=== PATIENT | male | born 1995 | race Asian ===

== ENCOUNTER 2018-01-29 12:20 | Inpatient (IN) | payer OTHER ==
[2018-01-29] MEDS ORDERED: Sodium Chloride 0.9% 10 ML Syringe FLUSH PRN (13:56)
[2018-01-29] MEDS ORDERED: Sodium Chloride 0.9% 1,000 ML IV ONE (13:56)
--- NOTE | 2018-01-29 14:33 | EDM.PDOC ---
<Alysia Murphy - Last Filed: 01/29/18 18:44> ED HPI GENERAL MEDICAL PROBLEM - General Chief Complaint: Behavioral/Psych Stated Complaint: HEART PALPITATIONS Time Seen by Provider: 01/29/18 13:33 - History of Present Illness INITIAL COMMENTS - FREE TEXT/NARRATIVE: Patient comes in today with complaint of anxiety. Patient states that he experiences heart palpitations when he feels anxious. He has had these symptoms intermittently for five years. He went to the doctor five years ago with this complaint, he had an EKG which was normal, he was told that his symptoms were due to anxiety. The patient is from [facility], he is living in [place] while working and will be returning to [facility] in April. His palpitations have been occurring more frequently over the past two weeks, especially the past two to three days. Patient denies illicit drug use, SOB, chest pain, dizziness, syncope, weakness, family history of heart disease or sudden cardiac . Patient does not take any medication prescription or OTC. Duration: Getting Worse, Intermittent Location: Reports: Chest Worsens with: Reports: Other Associated Symptoms: Denies: Confusion, Chest Pain, Diaphoresis, Nausea/Vomiting , Shortness of Breath, Syncope, Weakness - Related Data Allergies Allergy/AdvReac Type Severity Reaction Status Date / Time No Known Allergies Allergy Verified 01/29/18 12:33 Home Meds: Home Meds . [No Known Home Meds] 01/29/18 [History] ED ROS GENERAL - Review of Systems Constitutional: Denies: Fever, Chills, Weakness, Fatigue, Diaphoresis Respiratory: Denies: Shortness of Breath Cardiovascular: Reports: Palpitations. Denies: Chest Pain, Blood Pressure Problem, Dyspnea on Exertion, Edema, Lightheadedness, Syncope Endocrine: Denies: Fatigue GI/Abdominal: Denies: Abdominal Pain, Diarrhea, Nausea, Vomiting Skin: Denies: Cyanosis, Pallor, Diaphoresis Neurological: Denies: Confusion, Dizziness, Headache, Numbness, Syncope, Tingling, Weakness Psychiatric: Reports: Anxiety ED EXAM, GENERAL - Physical Exam Exam Limited By: No Limitations General Appearance: Alert, WD/WN, No Apparent Distress Eye Exam: Bilateral Eye: EOMI, PERRL Head: Atraumatic, Normocephalic Respiratory/Chest: No Respiratory Distress, Lungs Clear, Normal Breath Sounds, No Accessory Muscle Use, Chest Non-Tender. No: Crackles, Rhonchi, Wheezing, Retractions Cardiovascular: Normal Peripheral Pulses, Regular Rate, Rhythm, No Edema, No Murmur GI/Abdominal: Normal Bowel Sounds, Soft, Non-Tender, No Distention Neurological: Alert, Oriented, Normal Cognition Psychiatric: Normal Affect, Normal Mood. No: Anxious Course - Vital Signs Last Recorded V/S: Last Vital Signs Temp 98.1 F 01/29/18 18:00 Pulse 68 01/29/18 18:00 Resp 18 01/29/18 18:00 BP 137/95 H 01/29/18 18:00 Pulse Ox 98 01/29/18 19:05 - Orders/Labs/Meds Orders: Active Orders 24 hr Category Date Time Status Cardiac Monitoring [RC] . DIRECTED Care 01/29/18 13:55 Active EKG Documentation Completion [RC] ASDIRECTED Care 01/29/18 13:56 Active Peripheral IV Care [RC] Q2HR Care 01/29/18 13:56 Active DRUG SCREEN, URINE [URCHEM] Stat Lab 01/29/18 18:00 Ordered Sodium Chloride 0.9% [Saline Flush] Med 01/29/18 13:56 Active 10 ml FLUSH ASDIRECTED PRN Peripheral IV Insertion Adult [OM.PC] Routine Oth 01/29/18 13:56 Ordered EKG 12 Lead [EK] Stat Ther 01/29/18 13:55 Ordered Medication Orders Acetaminophen (Tylenol) 650 mg PO Q4H PRN PRN Reason: Pain (Mild 1-3)/fever Hydrocodone Bitart/Acetaminophen ([place] 325-5 Mg) 1 tab PO Q4H PRN PRN Reason: Pain (moderate 4-6) Bisacodyl (Dulcolax) 5 mg PO DAILY PRN PRN Reason: Constipation Docusate Sodium (Colace) 100 mg PO BID PRN PRN Reason: Constipation Enoxaparin Sodium (Lovenox) 40 mg SUBCUT DAILY DIDI Famotidine (Pepcid) 20 mg PO BID DIDI Hydralazine HCl (Apresoline) 20 mg IVPUSH Q4H PRN PRN Reason: Hypertension Amiodarone HCl/Dextrose 150 mg (/ Premix) 100 mls @ 600 mls/hr IV ONETIME PRN; Protocol PRN Reason: V-TACH Last Admin: 01/29/18 20:15 Dose: 600 mls/hr Amiodarone HCl/Dextrose (Nexterone In Dextrose 360 Mg/200 Ml) 360 mg in 200 mls @ 33.333 mls/hr IV ASDIRECTED [facility]; Protocol Last Admin: 01/29/18 20:39 Dose: 33.333 mls/hr Lorazepam (Ativan) 2 mg IVPUSH Q4H PRN PRN Reason: Seizures Magnesium Hydroxide (Milk Of Magnesia) 30 ml PO Q12H PRN PRN Reason: Constipation Magnesium Sulfate (Pharmacy To Dose - Magnesium Replacement) 1 dose .XX ASDIRECTED [facility] Metoprolol Tartrate (Lopressor) 5 mg IVPUSH Q4H PRN PRN Reason: Tachycardia Morphine Sulfate (Morphine) 2 mg IVPUSH Q2H PRN PRN Reason: Pain (severe 7-10) Stop: 01/30/18 19:06 Ondansetron HCl (Zofran Odt) 4 mg PO Q4H PRN PRN Reason: nausea, able to take PO Ondansetron HCl (Zofran) 4 mg IV Q4H PRN PRN Reason: Nausea/Vomiting Polyethylene Glycol (Miralax) 17 gm PO DAILY PRN PRN Reason: Constipation Potassium Chloride (Pharmacy To Dose - Potassium Replacement) 1 dose .XX ASDIRECTED [facility] Senna/Docusate Sodium (Senna Plus) 1 tab PO BID PRN PRN Reason: Constipation Sodium Chloride (Saline Flush) 10 ml FLUSH ASDIRECTED PRN PRN Reason: Keep Vein Open Last Admin: 01/29/18 14:38 Dose: 10 ml Labs: Laboratory Tests 01/29/18 01/29/18 01/29/18 Range/Units 14:30 14:30 14:30 WBC 7.31 (4.23-9.07) K/mm3 RBC 6.85 H (4.63-6.08) M/mm3 Hgb 14.2 (13.7-17.5) gm/L Hct 44.0 (40.1-51.0) % MCV 64.2 L (79.0-92.2) fl MCH 20.7 L (25.7-32.2) pg MCHC 32.3 (32.2-35.5) g/dl RDW Std Deviation 41.9 (35.1-43.9) fL Plt Count 279 (163-337) K/mm3 MPV 10.9 (9.4-12.3) fl Neut % (Auto) 63.7 (34.0-67.9) % Lymph % (Auto) 16.3 L (21.8-53.1) % Garrard % (Auto) 17.6 H (5.3-12.2) % Eos % (Auto) 1.6 (0.8-7.0) Baso % (Auto) 0.7 (0.1-1.2) % Neut # (Auto) 4.65 (1.78-5.38) K/mm3 Lymph # (Auto) 1.19 L (1.32-3.57) K/mm3 Garrard # (Auto) 1.29 H (0.30-0.82) K/mm3 Eos # (Auto) 0.12 (0.04-0.54) K/mm3 Baso # (Auto) 0.05 (0.01-0.08) K/mm3 Manual Slide Review Abnormal smear D-Dimer, Quantitative 0.20 (0.19-0.50) mg/L Sodium 141 (136-145) mEq/L Potassium 4.0 (3.5-5.1) mEq/L Chloride 104 (98-107) mEq/L Carbon Dioxide 28 (21-32) mEq/L Anion Gap 13.0 (5-15) BUN 14 (7-18) mg/dL Creatinine 1.0 (0.7-1.3) mg/dL Est Cr Clr Drug Dosing 98.33 mL/min Estimated GFR (MDRD) > 60 (>60) mL/min BUN/Creatinine Ratio 14.0 (14-18) Glucose 91 (74-106) mg/dL Calcium 9.2 (8.5-10.1) mg/dL Magnesium 2.1 (1.8-2.4) mg/dl Total Bilirubin 1.0 (0.2-1.0) mg/dL AST 22 (15-37) U/L ALT 20 (16-63) U/L Alkaline Phosphatase 70 (46-116) U/L Troponin I < 0.017 (0.00-0.056) ng/mL Total Protein 7.7 (6.4-8.2) g/dl Albumin 4.2 (3.4-5.0) g/dl Globulin 3.5 gm/dL Albumin/Globulin Ratio 1.2 (1-2) TSH 3rd Generation 0.798 (0.358-3.74) uIU/mL Urine Color Urine Appearance Urine pH Ur Specific Fowler Urine Protein Urine Glucose (UA) Urine Ketones Urine Occult Blood Urine Nitrite Urine Bilirubin Urine Urobilinogen Ur Leukocyte Esterase Urine RBC Urine WBC Urine WBC Clumps Ur Epithelial Cells Ur Squamous Epith Cells Ur Transition Epith Cell Ur Renal Epithelial Cell Schaller Biurate Crystals Calcium Carbonate Cryst Calcium Phosphate Cryst Calcium Oxalate Crystal Leucine Crystals Cystine Crystals Uric Acid Crystals Triple Phos Crystals Sodium Urate Crystals Tyrosine Crystals Other Crystals Amorphous Sediment Urine Bacteria Epithelial Casts Fatty Casts Hyaline Casts Fine Granular Casts Coarse Granular Casts Waxy Casts Broad Casts RBC Casts WBC Casts Urine Mucus Urine Other Urine Trichomonas Urine Yeast Ur Yeast w Hyphae Urine Yeast (Budding) Ur Oval Fat Bodies Urinalysis Comment Ethyl Alcohol (0.00) gm% 01/29/18 01/29/18 Range/Units 14:30 15:36 WBC (4.23-9.07) K/mm3 RBC (4.63-6.08) M/mm3 Hgb (13.7-17.5) gm/L Hct (40.1-51.0) % MCV (79.0-92.2) fl MCH (25.7-32.2) pg MCHC (32.2-35.5) g/dl RDW Std Deviation (35.1-43.9) fL Plt Count (163-337) K/mm3 MPV (9.4-12.3) fl Neut % (Auto) (34.0-67.9) % Lymph % (Auto) (21.8-53.1) % Garrard % (Auto) (5.3-12.2) % Eos % (Auto) (0.8-7.0) Baso % (Auto) (0.1-1.2) % Neut # (Auto) (1.78-5.38) K/mm3 Lymph # (Auto) (1.32-3.57) K/mm3 Garrard # (Auto) (0.30-0.82) K/mm3 Eos # (Auto) (0.04-0.54) K/mm3 Baso # (Auto) (0.01-0.08) K/mm3 Manual Slide Review D-Dimer, Quantitative (0.19-0.50) mg/L Sodium (136-145) mEq/L Potassium (3.5-5.1) mEq/L Chloride (98-107) mEq/L Carbon Dioxide (21-32) mEq/L Anion Gap (5-15) BUN (7-18) mg/dL Creatinine (0.7-1.3) mg/dL Est Cr Clr Drug Dosing mL/min Estimated GFR (MDRD) (>60) mL/min BUN/Creatinine Ratio (14-18) Glucose (74-106) mg/dL Calcium (8.5-10.1) mg/dL Magnesium (1.8-2.4) mg/dl Total Bilirubin (0.2-1.0) mg/dL AST (15-37) U/L ALT (16-63) U/L Alkaline Phosphatase (46-116) U/L Troponin I (0.00-0.056) ng/mL Total Protein (6.4-8.2) g/dl Albumin (3.4-5.0) g/dl Globulin gm/dL Albumin/Globulin Ratio (1-2) TSH 3rd Generation (0.358-3.74) uIU/mL Urine Color Cancelled Urine Appearance Cancelled Urine pH Cancelled Ur Specific Fowler Cancelled Urine Protein Cancelled Urine Glucose (UA) Cancelled Urine Ketones Cancelled Urine Occult Blood Cancelled Urine Nitrite Cancelled Urine Bilirubin Cancelled Urine Urobilinogen Cancelled Ur Leukocyte Esterase Cancelled Urine RBC Cancelled Urine WBC Cancelled Urine WBC Clumps Cancelled Ur Epithelial Cells Cancelled Ur Squamous Epith Cells Cancelled Ur Transition Epith Cell Cancelled Ur Renal Epithelial Cell Cancelled Chriss Biurate Crystals Cancelled Calcium Carbonate Cryst Cancelled Calcium Phosphate Cryst Cancelled Calcium Oxalate Crystal Cancelled Leucine Crystals Cancelled Cystine Crystals Cancelled Uric Acid Crystals Cancelled Triple Phos Crystals Cancelled Sodium Urate Crystals Cancelled Tyrosine Crystals Cancelled Other Crystals Cancelled Amorphous Sediment Cancelled Urine Bacteria Cancelled Epithelial Casts Cancelled Fatty Casts Cancelled Hyaline Casts Cancelled Fine Granular Casts Cancelled Coarse Granular Casts Cancelled Waxy Casts Cancelled Broad Casts Cancelled RBC Casts Cancelled WBC Casts Cancelled Urine Mucus Cancelled Urine Other Cancelled Urine Trichomonas Cancelled Urine Yeast Cancelled Ur Yeast w Hyphae Cancelled Urine Yeast (Budding) Cancelled Ur Oval Fat Bodies Cancelled Urinalysis Comment Cancelled Ethyl Alcohol 0.00 (0.00) gm% Meds: Medications Generic Name Dose Route Start Last Admin Trade Name Freq PRN Reason Stop Dose Admin Acetaminophen 650 mg 01/29/18 19:04 Tylenol PO Q4H PRN Pain (Mild 1-3)/fever Hydrocodone Bitart/Acetaminophen 1 tab 01/29/18 19:04 [place] 325-5 Mg PO Q4H PRN Pain (moderate 4-6) Bisacodyl 5 mg 01/29/18 19:04 Dulcolax PO DAILY PRN Constipation Docusate Sodium 100 mg 01/29/18 19:04 Colace PO BID PRN Constipation Enoxaparin Sodium 40 mg 01/30/18 09:00 Lovenox SUBCUT DAILY DIDI Famotidine 20 mg 01/30/18 09:00 Pepcid PO BID DIDI Hydralazine HCl 20 mg 01/29/18 20:34 Apresoline IVPUSH Q4H PRN Hypertension Amiodarone HCl/Dextrose 150 mg 100 mls @ 600 mls/hr 01/29/18 19:31 01/29/18 20:15 / Premix IV 600 mls/hr ONETIME PRN Administration V-TACH Protocol Amiodarone HCl/Dextrose 360 mg in 200 mls @ 33.333 mls/hr 01/29/18 20:45 07/07 20:39 Nexterone In Dextrose 360 Mg/200 Ml IV 33.333 mls/hr ASDIRECTED DIDI Administration Protocol Lorazepam 2 mg 01/29/18 20:34 Ativan IVPUSH Q4H PRN Seizures Magnesium Hydroxide 30 ml 01/29/18 19:04 Milk Of Magnesia PO Q12H PRN Constipation Magnesium Sulfate 1 dose 01/29/18 20:45 Pharmacy To Dose - Magnesium Replacement .XX ASDIRECTED [facility] Metoprolol Tartrate 5 mg 01/29/18 20:34 Lopressor IVPUSH Q4H PRN Tachycardia Morphine Sulfate 2 mg 01/29/18 19:04 Morphine IVPUSH 01/30/18 19:06 Q2H PRN Pain (severe 7-10) Ondansetron HCl 4 mg 01/29/18 19:04 Zofran Odt PO Q4H PRN nausea, able to take PO Ondansetron HCl 4 mg 01/29/18 19:04 Zofran IV Q4H PRN Nausea/Vomiting Polyethylene Glycol 17 gm 01/29/18 19:04 Miralax PO DAILY PRN Constipation Potassium Chloride 1 dose 01/29/18 20:45 Pharmacy To Dose - Potassium Replacement .XX ASDIRECTED DIDI Senna/Docusate Sodium 1 tab 01/29/18 19:04 Senna Plus PO BID PRN Constipation Sodium Chloride 10 ml 01/29/18 13:56 01/29/18 14:38 Saline Flush FLUSH 10 ml ASDIRECTED PRN Administration Keep Vein Open Discontinued Medications Generic Name Dose Route Start Last Admin Trade Name Freq PRN Reason Stop Dose Admin Sodium Chloride 1,000 mls @ 999 mls/hr 01/29/18 13:56 01/29/18 14:38 Normal Saline IV 01/29/18 14:56 999 mls/hr ONETIME ONE Administration Departure - Departure Disposition: Admitted As Inpatient 66 Clinical Impression: V-tach, Palpitations - My Orders Last 24 Hours: My Active Orders 01/29/18 13:55 Cardiac Monitoring [RC] . DIRECTED EKG 12 Lead [EK] Stat 01/29/18 13:56 EKG Documentation Completion [RC] ASDIRECTED Peripheral IV Care [RC] Q2HR Sodium Chloride 0.9% [Saline Flush] 10 ml FLUSH ASDIRECTED PRN Peripheral IV Insertion Adult [OM.PC] Routine 01/29/18 18:00 DRUG SCREEN, URINE [URCHEM] Stat - Assessment/Plan Last 24 Hours: My Active Orders 01/29/18 13:55 Cardiac Monitoring [RC] . DIRECTED EKG 12 Lead [EK] Stat 01/29/18 13:56 EKG Documentation Completion [RC] ASDIRECTED Peripheral IV Care [RC] Q2HR Sodium Chloride 0.9% [Saline Flush] 10 ml FLUSH ASDIRECTED PRN Peripheral IV Insertion Adult [OM.PC] Routine 01/29/18 18:00 DRUG SCREEN, URINE [URCHEM] Stat <Deepa Brito - Last Filed: 01/29/18 21:51> ED HPI GENERAL MEDICAL PROBLEM - General Source of Information: Reports: Patient History Limitations: Reports: No Limitations - History of Present Illness INITIAL COMMENTS - FREE TEXT/NARRATIVE: I have seen the patient and agree with the HPI as documented by WE[facility] Sullivan. Past Medical History - Past Health History Medical/Surgical History: Denies Medical/Surgical History Social & Family History - Tobacco Use Smoking Status *Q: Never Smoker - Caffeine Use Caffeine Use: Reports: None - Recreational Drug Use Recreational Drug Use: No ED ROS GENERAL - Review of Systems Review Of Systems: See Below ED EXAM, GENERAL - Physical Exam Exam: See Below Skin Exam: Warm, Dry, Normal Color Course - Orders/Labs/Meds Labs: Laboratory Tests 01/29/18 01/29/18 01/29/18 Range/Units 14:30 14:30 14:30 WBC 7.31 (4.23-9.07) K/mm3 RBC 6.85 H (4.63-6.08) M/mm3 Hgb 14.2 (13.7-17.5) gm/L Hct 44.0 (40.1-51.0) % MCV 64.2 L (79.0-92.2) fl MCH 20.7 L (25.7-32.2) pg MCHC 32.3 (32.2-35.5) g/dl RDW Std Deviation 41.9 (35.1-43.9) fL Plt Count 279 (163-337) K/mm3 MPV 10.9 (9.4-12.3) fl Neut % (Auto) 63.7 (34.0-67.9) % Lymph % (Auto) 16.3 L (21.8-53.1) % Garrard % (Auto) 17.6 H (5.3-12.2) % Eos % (Auto) 1.6 (0.8-7.0) Baso % (Auto) 0.7 (0.1-1.2) % Neut # (Auto) 4.65 (1.78-5.38) K/mm3 Lymph # (Auto) 1.19 L (1.32-3.57) K/mm3 Garrard # (Auto) 1.29 H (0.30-0.82) K/mm3 Eos # (Auto) 0.12 (0.04-0.54) K/mm3 Baso # (Auto) 0.05 (0.01-0.08) K/mm3 Manual Slide Review Abnormal smear D-Dimer, Quantitative 0.20 (0.19-0.50) mg/L Sodium 141 (136-145) mEq/L Potassium 4.0 (3.5-5.1) mEq/L Chloride 104 (98-107) mEq/L Carbon Dioxide 28 (21-32) mEq/L Anion Gap 13.0 (5-15) BUN 14 (7-18) mg/dL Creatinine 1.0 (0.7-1.3) mg/dL Est Cr Clr Drug Dosing 98.33 mL/min Estimated GFR (MDRD) > 60 (>60) mL/min BUN/Creatinine Ratio 14.0 (14-18) Glucose 91 (74-106) mg/dL Calcium 9.2 (8.5-10.1) mg/dL Magnesium 2.1 (1.8-2.4) mg/dl Total Bilirubin 1.0 (0.2-1.0) mg/dL AST 22 (15-37) U/L ALT 20 (16-63) U/L Alkaline Phosphatase 70 (46-116) U/L Troponin I < 0.017 (0.00-0.056) ng/mL Total Protein 7.7 (6.4-8.2) g/dl Albumin 4.2 (3.4-5.0) g/dl Globulin 3.5 gm/dL Albumin/Globulin Ratio 1.2 (1-2) TSH 3rd Generation 0.798 (0.358-3.74) uIU/mL Urine Color Urine Appearance Urine pH Ur Specific Fowler Urine Protein Urine Glucose (UA) Urine Ketones Urine Occult Blood Urine Nitrite Urine Bilirubin Urine Urobilinogen Ur Leukocyte Esterase Urine RBC Urine WBC Urine WBC Clumps Ur Epithelial Cells Ur Squamous Epith Cells Ur Transition Epith Cell Ur Renal Epithelial Cell Schaller Biurate Crystals Calcium Carbonate Cryst Calcium Phosphate Cryst Calcium Oxalate Crystal Leucine Crystals Cystine Crystals Uric Acid Crystals Triple Phos Crystals Sodium Urate Crystals Tyrosine Crystals Other Crystals Amorphous Sediment Urine Bacteria Epithelial Casts Fatty Casts Hyaline Casts Fine Granular Casts Coarse Granular Casts Waxy Casts Broad Casts RBC Casts WBC Casts Urine Mucus Urine Other Urine Trichomonas Urine Yeast Ur Yeast w Hyphae Urine Yeast (Budding) Ur Oval Fat Bodies Urinalysis Comment Ethyl Alcohol (0.00) gm% 01/29/18 01/29/18 Range/Units 14:30 15:36 WBC (4.23-9.07) K/mm3 RBC (4.63-6.08) M/mm3 Hgb (13.7-17.5) gm/L Hct (40.1-51.0) % MCV (79.0-92.2) fl MCH (25.7-32.2) pg MCHC (32.2-35.5) g/dl RDW Std Deviation (35.1-43.9) fL Plt Count (163-337) K/mm3 MPV (9.4-12.3) fl Neut % (Auto) (34.0-67.9) % Lymph % (Auto) (21.8-53.1) % Garrard % (Auto) (5.3-12.2) % Eos % (Auto) (0.8-7.0) Baso % (Auto) (0.1-1.2) % Neut # (Auto) (1.78-5.38) K/mm3 Lymph # (Auto) (1.32-3.57) K/mm3 Garrard # (Auto) (0.30-0.82) K/mm3 Eos # (Auto) (0.04-0.54) K/mm3 Baso # (Auto) (0.01-0.08) K/mm3 Manual Slide Review D-Dimer, Quantitative (0.19-0.50) mg/L Sodium (136-145) mEq/L Potassium (3.5-5.1) mEq/L Chloride (98-107) mEq/L Carbon Dioxide (21-32) mEq/L Anion Gap (5-15) BUN (7-18) mg/dL Creatinine (0.7-1.3) mg/dL Est Cr Clr Drug Dosing mL/min Estimated GFR (MDRD) (>60) mL/min BUN/Creatinine Ratio (14-18) Glucose (74-106) mg/dL Calcium (8.5-10.1) mg/dL Magnesium (1.8-2.4) mg/dl Total Bilirubin (0.2-1.0) mg/dL AST (15-37) U/L ALT (16-63) U/L Alkaline Phosphatase (46-116) U/L Troponin I (0.00-0.056) ng/mL Total Protein (6.4-8.2) g/dl Albumin (3.4-5.0) g/dl Globulin gm/dL Albumin/Globulin Ratio (1-2) TSH 3rd Generation (0.358-3.74) uIU/mL Urine Color Cancelled Urine Appearance Cancelled Urine pH Cancelled Ur Specific Fowler Cancelled Urine Protein Cancelled Urine Glucose (UA) Cancelled Urine Ketones Cancelled Urine Occult Blood Cancelled Urine Nitrite Cancelled Urine Bilirubin Cancelled Urine Urobilinogen Cancelled Ur Leukocyte Esterase Cancelled Urine RBC Cancelled Urine WBC Cancelled Urine WBC Clumps Cancelled Ur Epithelial Cells Cancelled Ur Squamous Epith Cells Cancelled Ur Transition Epith Cell Cancelled Ur Renal Epithelial Cell Cancelled Chriss Biurate Crystals Cancelled Calcium Carbonate Cryst Cancelled Calcium Phosphate Cryst Cancelled Calcium Oxalate Crystal Cancelled Leucine Crystals Cancelled Cystine Crystals Cancelled Uric Acid Crystals Cancelled Triple Phos Crystals Cancelled Sodium Urate Crystals Cancelled Tyrosine Crystals Cancelled Other Crystals Cancelled Amorphous Sediment Cancelled Urine Bacteria Cancelled Epithelial Casts Cancelled Fatty Casts Cancelled Hyaline Casts Cancelled Fine Granular Casts Cancelled Coarse Granular Casts Cancelled Waxy Casts Cancelled Broad Casts Cancelled RBC Casts Cancelled WBC Casts Cancelled Urine Mucus Cancelled Urine Other Cancelled Urine Trichomonas Cancelled Urine Yeast Cancelled Ur Yeast w Hyphae Cancelled Urine Yeast (Budding) Cancelled Ur Oval Fat Bodies Cancelled Urinalysis Comment Cancelled Ethyl Alcohol 0.00 (0.00) gm% - Radiology Interpretation Free Text/Narrative:: Chest: Portable view of the chest was obtained. Comparison: No prior chest x-ray. Heart size and mediastinum are normal. Lungs are clear. Bony structures are grossly intact. Impression: 1. Nothing acute is seen on portable chest x-ray. - Re-Assessments/Exams Free Text/Narrative Re-Assessment/Exam: 01/29/18 17:21 I have seen the patient and agree with the history of present illness, review of systems and physical exam as documented by [facility] Sullivan. Patient has had several runs of V. tach will here in the ER. No runs of V. tach since around 14:00/ He is asymptomatic other than palpitations during his runs of V. tach. The longest run of V. tach was approximately 35-40 seconds. I discussed the case with airplane flight attendant, Dr. Arizmendi in [place]. He is recommending that we continue to monitor the patient and get an echocardiogram. Further treatment will depend greatly on echocardiogram. He did tell me that he could get an expedited appointment to EP pending echocardiogram results. Dr. Raymond, airplane flight attendant, will be engagement liaison tomorrow. He will be available to discuss the case further with any further direction. I discussed this with the patient. I do highly recommend coming into the hospital today. He is at high risk of sudden cardiac . Discussed case with Dr. Swenson, hospitalist on-call. He agrees to the admission. Will be admitted to the ICU for close cardiac monitoring. Departure - Departure Time of Disposition: 17:30 Condition: Serious
--- NOTE | 2018-01-29 15:39 | CR ---
Chest: Portable view of the chest was obtained. Comparison: No prior chest x-ray. Heart size and mediastinum are normal. Lungs are clear. Bony structures are grossly intact. Impression: 1. Nothing acute is seen on portable chest x-ray. Diagnostic code #1
[2018-01-29] MEDS ORDERED: Acetaminophen 325 MG Tab PO PRN (19:04)
[2018-01-29] MEDS ORDERED: Polyethylene Glycol 3350 Powder 17 GM Packet PO PRN (19:04)
[2018-01-29] MEDS ORDERED: Docusate Sodium 100 MG Cap PO PRN (19:04)
[2018-01-29] MEDS ORDERED: Ondansetron 4 MG Tab.DIS PO PRN (19:04)
[2018-01-29] MEDS ORDERED: Acetaminophen/HYDROcodone 325-5 MG Tab PO PRN (19:04)
[2018-01-29] MEDS ORDERED: Ondansetron 4 MG/2 ML SDV IV PRN (19:04)
[2018-01-29] MEDS ORDERED: Bisacodyl 5 MG Tab PO PRN (19:04)
[2018-01-29] MEDS ORDERED: Morphine 2 MG/ML Syringe IVPUSH PRN (19:04)
[2018-01-29] MEDS ORDERED: Magnesium Hydroxide 400 MG/5 ML Susp 30 ML Cup PO PRN (19:04)
[2018-01-29] MEDS ORDERED: Amiodarone 150 MG in Dextrose 5% in Water 100 ML IV ONE ×2 (19:14)
--- NOTE | 2018-01-29 19:33 | PCM.HP ---
H&P History of Present Illness - General Date of Service: 01/29/18 Admit Problem/Dx: Admission Diagnosis/Problem Admission Diagnosis/Problem Ventricular tachycardia seen on on air director Source of Information: Patient, Provider History Limitations: Reports: No Limitations - History of Present Illness Initial Comments - Free Text/Narative: HPI: This is a 22 yo male originally from [facility] with past medical hx/o Anxiety and heart palpitations who comes in for V-Tach. He complains of intermittent palpitations. He denies shortness of breath, syncope, chest pain, N/V/D, headache, or GI/ complaints. His initial workup in the ED showed a CBC remarkable for RBC 6.85, MCV 64.2, MCH 20.7, Lymph 16.3%, [place] 17.6%, Lymph 1.19, [place] 1.29. His chemistry is unremarkable. EKG in ED was unremarkable, however according to the ED provider he did go into 6 different bouts of VTach while on telemetry lasting from 10 [address] Arizmendi in [place] was consulted by ED and he recommended admission due to risk of sudden cardiac . Also recommends ECHO be done. He is subsequently admitted to the ICU. He is a full code. He currently does not have a PCP. - Related Data Allergies/Adverse Reactions: Allergies Allergy/AdvReac Type Severity Reaction Status Date / Time No Known Allergies Allergy Verified 01/29/18 12:33 Home Medications: Home Meds . [No Known Home Meds] 01/29/18 [History] Past Medical History - Past Health History Medical/Surgical History: Denies Medical/Surgical History - Past Surgical History Other Cardiovascular Surgeries/Procedures: hx of palpatations Social & Family History - Tobacco Use Smoking Status *Q: Never Smoker - Caffeine Use Caffeine Use: Reports: None - Recreational Drug Use Recreational Drug Use: No H&P Review of Systems - Review of Systems: Review Of Systems: See Below General: Reports: No Symptoms HEENT: Reports: No Symptoms Pulmonary: Reports: No Symptoms. Denies: Shortness of Breath Cardiovascular: Reports: Palpitations. Denies: Chest Pain, Dyspnea on Exertion , Edema, Lightheadedness, Syncope Gastrointestinal: Reports: No Symptoms. Denies: Abdominal Pain, Diarrhea, Nausea, Vomiting Genitourinary: Reports: No Symptoms Musculoskeletal: Reports: No Symptoms Skin: Reports: No Symptoms Psychiatric: Reports: Anxiety Neurological: Reports: No Symptoms Hematologic/Lymphatic: Reports: No Symptoms Immunologic: Reports: No Symptoms Exam - Exam Exam: See Below - Vital Signs Vital Signs: Last Vital Signs Temp 98.1 F 01/29/18 18:00 Pulse 68 01/29/18 18:00 Resp 18 01/29/18 18:00 BP 137/95 H 01/29/18 18:00 Pulse Ox 100 01/29/18 18:00 Weight: 127 lb 4.8 oz - Exam Quality Assessment: DVT Prophylaxis. No: Supplemental Oxygen General: Alert, Oriented, Cooperative, Mild Distress HEENT: PERRLA, Hearing Intact, Mucosa Moist & [place], Nares Patent, Normal Nasal Septum, Posterior Pharynx Clear, Conjunctiva Clear, EOMI, EACs Clear, TMs Clear Neck: Supple, Trachea Midline, 2 Lungs: Clear to Auscultation, Normal Respiratory Effort Cardiovascular: Regular Rate, Regular Rhythm GI/Abdominal Exam: Normal Bowel Sounds, Soft, Non-Tender, No Organomegaly, No Distention, No Abnormal Bruit, No Mass, Pelvis Stable (Male) Exam: Deferred Rectal (Males) Exam: Deferred Back Exam: Normal Inspection, Full Range of Motion, NT Extremities: Normal Inspection, Normal Range of Motion, Non-Tender, No Pedal Edema, Normal Capillary Refill Peripheral Pulses: 4+: Posterior Tibial (L), Posterior Tibial (R), Dorsalis Pedis (L), Dorsalis Pedis (R) Skin: Warm, Dry, Intact Neurological: Cranial Nerves Intact (grossly) Neuro Extensive - Mental Status: Alert, Oriented x3, Normal Mood/Affect, Normal Cognition Psychiatric: Alert, Normal Affect, Normal Mood, Anxious - Patient Data Lab Results Last 24 hrs: Laboratory Results - last 24 hr 01/29/18 01/29/18 01/29/18 Range/Units 14:30 14:30 14:30 WBC 7.31 (4.23-9.07) K/mm3 RBC 6.85 H (4.63-6.08) M/mm3 Hgb 14.2 (13.7-17.5) gm/L Hct 44.0 (40.1-51.0) % MCV 64.2 L (79.0-92.2) fl MCH 20.7 L (25.7-32.2) pg MCHC 32.3 (32.2-35.5) g/dl RDW Std Deviation 41.9 (35.1-43.9) fL Plt Count 279 (163-337) K/mm3 MPV 10.9 (9.4-12.3) fl Neut % (Auto) 63.7 (34.0-67.9) % Lymph % (Auto) 16.3 L (21.8-53.1) % [place] % (Auto) 17.6 H (5.3-12.2) % Eos % (Auto) 1.6 (0.8-7.0) Baso % (Auto) 0.7 (0.1-1.2) % Neut # (Auto) 4.65 (1.78-5.38) K/mm3 Lymph # (Auto) 1.19 L (1.32-3.57) K/mm3 [place] # (Auto) 1.29 H (0.30-0.82) K/mm3 Eos # (Auto) 0.12 (0.04-0.54) K/mm3 Baso # (Auto) 0.05 (0.01-0.08) K/mm3 Manual Slide Review Abnormal smear D-Dimer, Quantitative 0.20 (0.19-0.50) mg/L Sodium 141 (136-145) mEq/L Potassium 4.0 (3.5-5.1) mEq/L Chloride 104 (98-107) mEq/L Carbon Dioxide 28 (21-32) mEq/L Anion Gap 13.0 (5-15) BUN 14 (7-18) mg/dL Creatinine 1.0 (0.7-1.3) mg/dL Est Cr Clr Drug Dosing 98.33 mL/min Estimated GFR (MDRD) > 60 (>60) mL/min BUN/Creatinine Ratio 14.0 (14-18) Glucose 91 (74-106) mg/dL Calcium 9.2 (8.5-10.1) mg/dL Magnesium 2.1 (1.8-2.4) mg/dl Total Bilirubin 1.0 (0.2-1.0) mg/dL AST 22 (15-37) U/L ALT 20 (16-63) U/L Alkaline Phosphatase 70 (46-116) U/L Troponin I < 0.017 (0.00-0.056) ng/mL Total Protein 7.7 (6.4-8.2) g/dl Albumin 4.2 (3.4-5.0) g/dl Globulin 3.5 gm/dL Albumin/Globulin Ratio 1.2 (1-2) TSH 3rd Generation 0.798 (0.358-3.74) uIU/mL Urine Color Urine Appearance Urine pH Ur Specific [place] Urine Protein Urine Glucose (UA) Urine Ketones Urine Occult Blood Urine Nitrite Urine Bilirubin Urine Urobilinogen Ur Leukocyte Esterase Urine RBC Urine WBC Urine WBC Clumps Ur Epithelial Cells Ur Squamous Epith Cells Ur Transition Epith Cell Ur Renal Epithelial Cell [place] Biurate Crystals Calcium Carbonate Cryst Calcium Phosphate Cryst Calcium Oxalate Crystal Leucine Crystals Cystine Crystals Uric Acid Crystals Triple Phos Crystals Sodium Urate Crystals Tyrosine Crystals Other Crystals Amorphous Sediment Urine Bacteria Epithelial Casts Fatty Casts Hyaline Casts Fine Granular Casts Coarse Granular Casts Waxy Casts Broad Casts RBC Casts WBC Casts Urine Mucus Urine Other Urine Trichomonas Urine Yeast Ur Yeast w Hyphae Urine Yeast (Budding) Ur Oval Fat Bodies Urinalysis Comment Urine Opiates Screen (NEGATIVE) Ur Buprenorphine Scrn (NEGATIVE) Ur Oxycodone Screen (NEGATIVE) Urine Methadone Screen (NEGATIVE) Ur Propoxyphene Screen (NEGATIVE) Ur Barbiturates Screen (NEGATIVE) Ur Tricyclics Screen (NEGATIVE) Ur Phencyclidine Scrn (NEGATIVE) Ur Amphetamine Screen (NEGATIVE) U Methamphetamines Scrn (NEGATIVE) U Benzodiazepines Scrn (NEGATIVE) U Cocaine Metab Screen (NEGATIVE) U Marijuana (THC) Screen (NEGATIVE) Ethyl Alcohol (0.00) gm% 01/29/18 01/29/18 01/29/18 Range/Units 14:30 15:36 18:00 WBC (4.23-9.07) K/mm3 RBC (4.63-6.08) M/mm3 Hgb (13.7-17.5) gm/L Hct (40.1-51.0) % MCV (79.0-92.2) fl MCH (25.7-32.2) pg MCHC (32.2-35.5) g/dl RDW Std Deviation (35.1-43.9) fL Plt Count (163-337) K/mm3 MPV (9.4-12.3) fl Neut % (Auto) (34.0-67.9) % Lymph % (Auto) (21.8-53.1) % [place] % (Auto) (5.3-12.2) % Eos % (Auto) (0.8-7.0) Baso % (Auto) (0.1-1.2) % Neut # (Auto) (1.78-5.38) K/mm3 Lymph # (Auto) (1.32-3.57) K/mm3 [place] # (Auto) (0.30-0.82) K/mm3 Eos # (Auto) (0.04-0.54) K/mm3 Baso # (Auto) (0.01-0.08) K/mm3 Manual Slide Review D-Dimer, Quantitative (0.19-0.50) mg/L Sodium (136-145) mEq/L Potassium (3.5-5.1) mEq/L Chloride (98-107) mEq/L Carbon Dioxide (21-32) mEq/L Anion Gap (5-15) BUN (7-18) mg/dL Creatinine (0.7-1.3) mg/dL Est Cr Clr Drug Dosing mL/min Estimated GFR (MDRD) (>60) mL/min BUN/Creatinine Ratio (14-18) Glucose (74-106) mg/dL Calcium (8.5-10.1) mg/dL Magnesium (1.8-2.4) mg/dl Total Bilirubin (0.2-1.0) mg/dL AST (15-37) U/L ALT (16-63) U/L Alkaline Phosphatase (46-116) U/L Troponin I (0.00-0.056) ng/mL Total Protein (6.4-8.2) g/dl Albumin (3.4-5.0) g/dl Globulin gm/dL Albumin/Globulin Ratio (1-2) TSH 3rd Generation (0.358-3.74) uIU/mL Urine Color Cancelled Urine Appearance Cancelled Urine pH Cancelled Ur Specific [place] Cancelled Urine Protein Cancelled Urine Glucose (UA) Cancelled Urine Ketones Cancelled Urine Occult Blood Cancelled Urine Nitrite Cancelled Urine Bilirubin Cancelled Urine Urobilinogen Cancelled Ur Leukocyte Esterase Cancelled Urine RBC Cancelled Urine WBC Cancelled Urine WBC Clumps Cancelled Ur Epithelial Cells Cancelled Ur Squamous Epith Cells Cancelled Ur Transition Epith Cell Cancelled Ur Renal Epithelial Cell Cancelled [place] Biurate Crystals Cancelled Calcium Carbonate Cryst Cancelled Calcium Phosphate Cryst Cancelled Calcium Oxalate Crystal Cancelled Leucine Crystals Cancelled Cystine Crystals Cancelled Uric Acid Crystals Cancelled Triple Phos Crystals Cancelled Sodium Urate Crystals Cancelled Tyrosine Crystals Cancelled Other Crystals Cancelled Amorphous Sediment Cancelled Urine Bacteria Cancelled Epithelial Casts Cancelled Fatty Casts Cancelled Hyaline Casts Cancelled Fine Granular Casts Cancelled Coarse Granular Casts Cancelled Waxy Casts Cancelled Broad Casts Cancelled RBC Casts Cancelled WBC Casts Cancelled Urine Mucus Cancelled Urine Other Cancelled Urine Trichomonas Cancelled Urine Yeast Cancelled Ur Yeast w [place]pha[place] Cancelled Urine Yeast (Budding) Cancelled Ur Oval Fat Bodies Cancelled Urinalysis Comment Cancelled Urine Opiates Screen Negative (NEGATIVE) Ur Buprenorphine Scrn Negative (NEGATIVE) Ur Oxycodone Screen Negative (NEGATIVE) Urine Methadone Screen Negative (NEGATIVE) Ur Propoxyphene Screen Negative (NEGATIVE) Ur Barbiturates Screen Negative (NEGATIVE) Ur Tricyclics Screen Negative (NEGATIVE) Ur Phencyclidine Scrn Negative (NEGATIVE) Ur Amphetamine Screen Negative (NEGATIVE) U Methamphetamines Scrn Negative (NEGATIVE) U Benzodiazepines Scrn Negative (NEGATIVE) U Cocaine Metab Screen Negative (NEGATIVE) U Marijuana (THC) Screen Negative (NEGATIVE) Ethyl Alcohol 0.00 (0.00) gm% 01/29/18 Range/Units 18:00 WBC (4.23-9.07) K/mm3 RBC (4.63-6.08) M/mm3 Hgb (13.7-17.5) gm/L Hct (40.1-51.0) % MCV (79.0-92.2) fl MCH (25.7-32.2) pg MCHC (32.2-35.5) g/dl RDW Std Deviation (35.1-43.9) fL Plt Count (163-337) K/mm3 MPV (9.4-12.3) fl Neut % (Auto) (34.0-67.9) % Lymph % (Auto) (21.8-53.1) % [place] % (Auto) (5.3-12.2) % Eos % (Auto) (0.8-7.0) Baso % (Auto) (0.1-1.2) % Neut # (Auto) (1.78-5.38) K/mm3 Lymph # (Auto) (1.32-3.57) K/mm3 [place] # (Auto) (0.30-0.82) K/mm3 Eos # (Auto) (0.04-0.54) K/mm3 Baso # (Auto) (0.01-0.08) K/mm3 Manual Slide Review D-Dimer, Quantitative (0.19-0.50) mg/L Sodium (136-145) mEq/L Potassium (3.5-5.1) mEq/L Chloride (98-107) mEq/L Carbon Dioxide (21-32) mEq/L Anion Gap (5-15) BUN (7-18) mg/dL Creatinine (0.7-1.3) mg/dL Est Cr Clr Drug Dosing mL/min Estimated GFR (MDRD) (>60) mL/min BUN/Creatinine Ratio (14-18) Glucose (74-106) mg/dL Calcium (8.5-10.1) mg/dL Magnesium (1.8-2.4) mg/dl Total Bilirubin (0.2-1.0) mg/dL AST (15-37) U/L ALT (16-63) U/L Alkaline Phosphatase (46-116) U/L Troponin I (0.00-0.056) ng/mL Total Protein (6.4-8.2) g/dl Albumin (3.4-5.0) g/dl Globulin gm/dL Albumin/Globulin Ratio (1-2) TSH 3rd Generation (0.358-3.74) uIU/mL Urine Color Light yellow Urine Appearance Slt cloudy H Urine pH 7.0 Ur Specific [place] 1.025 Urine Protein Negative Urine Glucose (UA) Negative Urine Ketones 2+ H Urine Occult Blood Negative Urine Nitrite Negative Urine Bilirubin Negative Urine Urobilinogen 0.2 Ur Leukocyte Esterase Negative Urine RBC 0-5 Urine WBC 0-5 Urine WBC Clumps Ur Epithelial Cells 0-5 Ur Squamous Epith Cells Ur Transition Epith Cell Ur Renal Epithelial Cell [place] Biurate Crystals Calcium Carbonate Cryst Calcium Phosphate Cryst Calcium Oxalate Crystal Leucine Crystals Cystine Crystals Uric Acid Crystals Triple Phos Crystals Sodium Urate Crystals Tyrosine Crystals Other Crystals Amorphous Sediment Many H Urine Bacteria Few Epithelial Casts Fatty Casts Hyaline Casts Fine Granular Casts Coarse Granular Casts Waxy Casts Broad Casts RBC Casts WBC Casts Urine Mucus Not seen Urine Other Urine Trichomonas Urine Yeast Ur Yeast w Hyphae Urine Yeast (Budding) Ur Oval Fat Bodies Urinalysis Comment Urine Opiates Screen (NEGATIVE) Ur Buprenorphine Scrn (NEGATIVE) Ur Oxycodone Screen (NEGATIVE) Urine Methadone Screen (NEGATIVE) Ur Propoxyphene Screen (NEGATIVE) Ur Barbiturates Screen (NEGATIVE) Ur Tricyclics Screen (NEGATIVE) Ur Phencyclidine Scrn (NEGATIVE) Ur Amphetamine Screen (NEGATIVE) U Methamphetamines Scrn (NEGATIVE) U Benzodiazepines Scrn (NEGATIVE) U Cocaine Metab Screen (NEGATIVE) U Marijuana (THC) Screen (NEGATIVE) Ethyl Alcohol (0.00) gm% Result Diagrams: 01/29/18 14:30 01/29/18 14:30 - Problem List (1) V-tach SNOMED Code(s): 14539068, 90574252 ICD Code: I47.2 - VENTRICULAR TACHYCARDIA Status: Acute Priority: High Current Visit: Yes (2) Palpitations SNOMED Code(s): 01404476 ICD Code: R00.2 - PALPITATIONS Status: Acute Priority: Medium Current Visit: Yes (3) Anxiety SNOMED Code(s): 16116096 ICD Code: F41.9 - ANXIETY DISORDER, UNSPECIFIED Status: Chronic Priority : Low Current Visit: Yes Problem List Initiated/Reviewed/Updated: Yes Orders Last 24hrs: Active Orders 24 hr Category Date Time Status Admission Status [Patient Status] [ADT] Routine ADT 01/29/18 17:30 Active Cardiac Monitoring [RC] . DIRECTED Care 01/29/18 13:55 Active Cardiac Monitoring [RC] CONTINUOUS Care 01/29/18 19:05 Ordered EKG Documentation Completion [RC] ASDIRECTED Care 01/29/18 13:56 Active Height and Weight [RC] DAILY Care 01/29/18 19:04 Ordered Intake and Output [RC] QSHIFT Care 01/29/18 19:05 Ordered May Shower [RC] ASDIRECTED Care 01/29/18 19:04 Ordered Oxygen Therapy [RC] PRN Care 01/29/18 19:04 Ordered Peripheral IV Care [RC] . DIRECTED Care 01/29/18 13:56 Active Pulse Oximetry [RC] CONTINUOUS Care 01/29/18 19:05 Ordered Up ad Neda [RC] ASDIRECTED Care 01/29/18 19:04 Ordered VTE/DVT Education [RC] PER UNIT ROUTINE Care 01/29/18 19:04 Ordered Vital Signs [RC] Q4H Care 01/29/18 19:04 Ordered Regular Diet [DIET] Diet 01/30/18 Breakfast Active Echo Comp wo Cont [US] Routine Exams 01/29/18 19:08 Ordered DRUG SCREEN, URINE [URCHEM] Stat Lab 01/29/18 18:00 Ordered Acetaminophen [Tylenol] Med 01/29/18 19:04 Ordered 650 mg PO Q4H PRN Acetaminophen/HYDROcodone [[place] 325-5 MG] Med 01/29/18 19:04 Ordered 1 tab PO Q4H PRN Amiodarone [Cordarone] 150 mg Med 01/29/18 19:14 Ordered Dextrose 5% in Water 100 ml IV .BOLUS Bisacodyl [Dulcolax] Med 01/29/18 19:04 Ordered 5 mg PO DAILY PRN Docusate Sodium [Colace] Med 01/29/18 19:04 Ordered 100 mg PO BID PRN Docusate Sodium/Sennosides [Senna Plus] Med 01/29/18 19:04 Ordered 1 tab PO BID PRN Enoxaparin [Lovenox] Med 01/30/18 09:00 Ordered 30 mg SUBCUT DAILY Magnesium Hydroxide [Milk of Magnesia] Med 01/29/18 19:04 Ordered 30 ml PO Q12H PRN Morphine Med 01/29/18 19:04 Ordered 2 mg IVPUSH Q2H PRN Ondansetron [Zofran ODT] Med 01/29/18 19:04 Ordered 4 mg PO Q4H PRN Ondansetron [Zofran] Med 01/29/18 19:04 Ordered 4 mg IV Q4H PRN Polyethylene Glycol 3350 [MiraLAX] Med 01/29/18 19:04 Ordered 17 gm PO DAILY PRN Sodium Chloride 0.9% [Saline Flush] Med 01/29/18 13:56 Active 10 ml FLUSH ASDIRECTED PRN Peripheral IV Insertion Adult [OM.PC] Routine Oth 01/29/18 13:56 Ordered Resuscitation Status Routine Resus Stat 01/29/18 19:04 Ordered EKG 12 Lead [EK] Stat Ther 01/29/18 13:55 Ordered Medication Orders Acetaminophen (Tylenol) 650 mg PO Q4H PRN PRN Reason: Pain (Mild 1-3)/fever Hydrocodone Bitart/Acetaminophen ([place] 325-5 Mg) 1 tab PO Q4H PRN PRN Reason: Pain (moderate 4-6) Bisacodyl (Dulcolax) 5 mg PO DAILY PRN PRN Reason: Constipation Docusate Sodium (Colace) 100 mg PO BID PRN PRN Reason: Constipation Enoxaparin Sodium (Lovenox) 40 mg SUBCUT DAILY DIDI Amiodarone HCl 150 mg/ (Dextrose/Water) 103 mls @ 600 mls/hr IV .BOLUS PRN; Protocol PRN Reason: Other Magnesium Hydroxide (Milk Of Magnesia) 30 ml PO Q12H PRN PRN Reason: Constipation Morphine Sulfate (Morphine) 2 mg IVPUSH Q2H PRN PRN Reason: Pain (severe 7-10) Stop: 01/30/18 19:06 Ondansetron HCl (Zofran Odt) 4 mg PO Q4H PRN PRN Reason: nausea, able to take PO Ondansetron HCl (Zofran) 4 mg IV Q4H PRN PRN Reason: Nausea/Vomiting Polyethylene Glycol (Miralax) 17 gm PO DAILY PRN PRN Reason: Constipation Senna/Docusate Sodium (Senna Plus) 1 tab PO BID PRN PRN Reason: Constipation Sodium Chloride (Saline Flush) 10 ml FLUSH ASDIRECTED PRN PRN Reason: Keep Vein Open Last Admin: 01/29/18 14:38 Dose: 10 ml Assessment/Plan Comment:: I/P: Acute: VTach * Palpitations have been occurring more frequently x2 weeks, especially the past 2-3 days * No family cardiac history or sudden , no illicit drug use, no caffeine intake, no medications, no PMH * States he doesn't know what causes it, but sometimes brought on by physical activity and eating "too much" * Has had these episodes intermittently x5 years, was told it was anxiety * EKG in ED normal * Telemetry in ED caught 6 different episodes of VTach, ranging from 10 seconds to 40 seconds in length * Oxygen Tank Filler Dr. Arizmendi at [facility] consulted by ED: * Admit bc risk for sudden cardiac * Recommends ECHO in AM * May need EP, will need to see results of ECHO first * May need to be transferred to Dr. Arizmendi pending ECHO results * Amiodarone if another episode of VTach occurs * Monitor on Telemetry in ICU Chronic: Anxiety * most likely 2/2 above Plan: Transferred to ICU He remains stable Other orders as indicated above ECHO in AM Regular Diet DVT Prophylaxis: Lovenox GI Prophylaxis: Pepcid Code Status: Full code; PCP: None
[2018-01-29] MEDS: Amiodarone In Dextrose,Iso-Osm 150 MG in Premix Bag 1 BAG IV PRN ×2 (20:15)
[2018-01-29] MEDS ORDERED: LORazepam 2 MG/ML SDV IVPUSH PRN (20:34)
[2018-01-29] MEDS ORDERED: Metoprolol Tartrate 5 MG/5 ML SDV IVPUSH PRN (20:34)
[2018-01-29] MEDS ORDERED: hydrALAZINE 20 MG/ML SDV IVPUSH PRN (20:34)
[2018-01-30] MEDS: Amiodarone In Dextrose,Iso-Osm 150 MG in Premix Bag 1 BAG IV PRN ×2 (02:50)
--- NOTE | 2018-01-30 07:22 | PCM.PN ---
<Bora Farris - Last Filed: 01/30/18 15:23> - General Info Date of Service: 01/30/18 Admission Dx/Problem (Free Text): Admission Diagnosis/Problem Admission Diagnosis/Problem Ventricular tachycardia seen on conveyor monitor Subjective Update: In to see Jeremias. He is lying in bed. He has no complaints. He has been on amiodarone for awhile now and has not had any arrhythmias. Will continue drip and eventually transition to PO per protocol. No nursing concerns. Echo was obtained today and results are pending. Functional Status: Reports: Pain Controlled, Tolerating Diet, Ambulating, Urinating. Denies: New Symptoms - Review of Systems General: Reports: No Symptoms. Denies: Fever, Weakness, Fatigue, Malaise, Chills HEENT: Reports: No Symptoms. Denies: Eye Pain, Sinus Congestion, Sore Throat Pulmonary: Reports: No Symptoms. Denies: Shortness of Breath, Cough, Wheezing Cardiovascular: Reports: No Symptoms. Denies: Chest Pain, Palpitations, Dyspnea on Exertion, Edema, Lightheadedness Gastrointestinal: Reports: No Symptoms. Denies: Abdominal Pain, Constipation, Diarrhea, Nausea, Vomiting Genitourinary: Reports: No Symptoms Musculoskeletal: Reports: No Symptoms Skin: Reports: No Symptoms Neurological: Reports: No Symptoms. Denies: Confusion, Dizziness, Numbness, Tingling Psychiatric: Reports: No Symptoms. Denies: Anxiety (currently ) - Patient Data Vitals - Most Recent: Last Vital Signs Temp 98.4 F 01/30/18 03:57 Pulse 70 01/30/18 03:57 Resp 15 01/30/18 07:00 BP 102/66 01/30/18 07:00 Pulse Ox 99 01/30/18 07:00 Weight - Most Recent: 57.697 kg I&O - Last 24 Hours: Intake & Output 01/29/18 01/30/18 01/30/18 22:59 06:59 14:59 Intake Total 531 Output Total 650 400 Balance -650 131 Lab Results Last 24 Hours: Laboratory Results - last 24 hr 01/29/18 01/29/18 01/29/18 Range/Units 14:30 14:30 14:30 WBC 7.31 (4.23-9.07) K/mm3 RBC 6.85 H (4.63-6.08) M/mm3 Hgb 14.2 (13.7-17.5) gm/L Hct 44.0 (40.1-51.0) % MCV 64.2 L (79.0-92.2) fl MCH 20.7 L (25.7-32.2) pg MCHC 32.3 (32.2-35.5) g/dl RDW Std Deviation 41.9 (35.1-43.9) fL Plt Count 279 (163-337) K/mm3 MPV 10.9 (9.4-12.3) fl Neut % (Auto) 63.7 (34.0-67.9) % Lymph % (Auto) 16.3 L (21.8-53.1) % [place] % (Auto) 17.6 H (5.3-12.2) % Eos % (Auto) 1.6 (0.8-7.0) Baso % (Auto) 0.7 (0.1-1.2) % Neut # (Auto) 4.65 (1.78-5.38) K/mm3 Lymph # (Auto) 1.19 L (1.32-3.57) K/mm3 [place] # (Auto) 1.29 H (0.30-0.82) K/mm3 Eos # (Auto) 0.12 (0.04-0.54) K/mm3 Baso # (Auto) 0.05 (0.01-0.08) K/mm3 Manual Slide Review Abnormal smear D-Dimer, Quantitative 0.20 (0.19-0.50) mg/L Sodium 141 (136-145) mEq/L Potassium 4.0 (3.5-5.1) mEq/L Chloride 104 (98-107) mEq/L Carbon Dioxide 28 (21-32) mEq/L Anion Gap 13.0 (5-15) BUN 14 (7-18) mg/dL Creatinine 1.0 (0.7-1.3) mg/dL Est Cr Clr Drug Dosing 98.33 mL/min Estimated GFR (MDRD) > 60 (>60) mL/min BUN/Creatinine Ratio 14.0 (14-18) Glucose 91 (74-106) mg/dL Calcium 9.2 (8.5-10.1) mg/dL Magnesium 2.1 (1.8-2.4) mg/dl Total Bilirubin 1.0 (0.2-1.0) mg/dL AST 22 (15-37) U/L ALT 20 (16-63) U/L Alkaline Phosphatase 70 (46-116) U/L Troponin I < 0.017 (0.00-0.056) ng/mL Total Protein 7.7 (6.4-8.2) g/dl Albumin 4.2 (3.4-5.0) g/dl Globulin 3.5 gm/dL Albumin/Globulin Ratio 1.2 (1-2) Free T4 (0.76-1.46) ng/dL TSH 3rd Generation 0.798 (0.358-3.74) uIU/mL Urine Color Urine Appearance Urine pH Ur Specific [place] Urine Protein Urine Glucose (UA) Urine Ketones Urine Occult Blood Urine Nitrite Urine Bilirubin Urine Urobilinogen Ur Leukocyte Esterase Urine RBC Urine WBC Urine WBC Clumps Ur Epithelial Cells Ur Squamous Epith Cells Ur Transition Epith Cell Ur Renal Epithelial Cell [place]isen[place] Biurate Crystals Calcium Carbonate Cryst Calcium Phosphate Cryst Calcium Oxalate Crystal Leucine Crystals Cystine Crystals Uric Acid Crystals Triple Phos Crystals Sodium Urate Crystals Tyrosine Crystals Other Crystals Amorphous Sediment Urine Bacteria Epithelial Casts Fatty Casts Hyaline Casts Fine Granular Casts Coarse Granular Casts Waxy Casts Broad Casts RBC Casts WBC Casts Urine Mucus Urine Other Urine Trichomonas Urine Yeast Ur Yeast w Hyphae Urine Yeast (Budding) Ur Oval Fat Bodies Urinalysis Comment Urine Opiates Screen (NEGATIVE) Ur Buprenorphine Scrn (NEGATIVE) Ur Oxycodone Screen (NEGATIVE) Urine Methadone Screen (NEGATIVE) Ur Propoxyphene Screen (NEGATIVE) Ur Barbiturates Screen (NEGATIVE) Ur Tricyclics Screen (NEGATIVE) Ur Phencyclidine Scrn (NEGATIVE) Ur Amphetamine Screen (NEGATIVE) U Methamphetamines Scrn (NEGATIVE) U Benzodiazepines Scrn (NEGATIVE) U Cocaine Metab Screen (NEGATIVE) U Marijuana (THC) Screen (NEGATIVE) Ethyl Alcohol (0.00) gm% 01/29/18 01/29/18 01/29/18 Range/Units 14:30 14:30 15:36 WBC (4.23-9.07) K/mm3 RBC (4.63-6.08) M/mm3 Hgb (13.7-17.5) gm/L Hct (40.1-51.0) % MCV (79.0-92.2) fl MCH (25.7-32.2) pg MCHC (32.2-35.5) g/dl RDW Std Deviation (35.1-43.9) fL Plt Count (163-337) K/mm3 MPV (9.4-12.3) fl Neut % (Auto) (34.0-67.9) % Lymph % (Auto) (21.8-53.1) % [place] % (Auto) (5.3-12.2) % Eos % (Auto) (0.8-7.0) Baso % (Auto) (0.1-1.2) % Neut # (Auto) (1.78-5.38) K/mm3 Lymph # (Auto) (1.32-3.57) K/mm3 [place] # (Auto) (0.30-0.82) K/mm3 Eos # (Auto) (0.04-0.54) K/mm3 Baso # (Auto) (0.01-0.08) K/mm3 Manual Slide Review D-Dimer, Quantitative (0.19-0.50) mg/L Sodium (136-145) mEq/L Potassium (3.5-5.1) mEq/L Chloride (98-107) mEq/L Carbon Dioxide (21-32) mEq/L Anion Gap (5-15) BUN (7-18) mg/dL Creatinine (0.7-1.3) mg/dL Est Cr Clr Drug Dosing mL/min Estimated GFR (MDRD) (>60) mL/min BUN/Creatinine Ratio (14-18) Glucose (74-106) mg/dL Calcium (8.5-10.1) mg/dL Magnesium (1.8-2.4) mg/dl Total Bilirubin (0.2-1.0) mg/dL AST (15-37) U/L ALT (16-63) U/L Alkaline Phosphatase (46-116) U/L Troponin I (0.00-0.056) ng/mL Total Protein (6.4-8.2) g/dl Albumin (3.4-5.0) g/dl Globulin gm/dL Albumin/Globulin Ratio (1-2) Free T4 1.19 (0.76-1.46) ng/dL TSH 3rd Generation (0.358-3.74) uIU/mL Urine Color Cancelled Urine Appearance Cancelled Urine pH Cancelled Ur Specific [place] Cancelled Urine Protein Cancelled Urine Glucose (UA) Cancelled Urine Ketones Cancelled Urine Occult Blood Cancelled Urine Nitrite Cancelled Urine Bilirubin Cancelled Urine Urobilinogen Cancelled Ur Leukocyte Esterase Cancelled Urine RBC Cancelled Urine WBC Cancelled Urine WBC Clumps Cancelled Ur Epithelial Cells Cancelled Ur Squamous Epith Cells Cancelled Ur Transition Epith Cell Cancelled Ur Renal Epithelial Cell Cancelled [place] Biurate Crystals Cancelled Calcium Carbonate Cryst Cancelled Calcium Phosphate Cryst Cancelled Calcium Oxalate Crystal Cancelled Leucine Crystals Cancelled Cystine Crystals Cancelled Uric Acid Crystals Cancelled Triple Phos Crystals Cancelled Sodium Urate Crystals Cancelled Tyrosine Crystals Cancelled Other Crystals Cancelled Amorphous Sediment Cancelled Urine Bacteria Cancelled Epithelial Casts Cancelled Fatty Casts Cancelled Hyaline Casts Cancelled Fine Granular Casts Cancelled Coarse Granular Casts Cancelled Waxy Casts Cancelled Broad Casts Cancelled RBC Casts Cancelled WBC Casts Cancelled Urine Mucus Cancelled Urine Other Cancelled Urine Trichomonas Cancelled Urine Yeast Cancelled Ur Yeast w Hyphae Cancelled Urine Yeast (Budding) Cancelled Ur Oval Fat Bodies Cancelled Urinalysis Comment Cancelled Urine Opiates Screen (NEGATIVE) Ur Buprenorphine Scrn (NEGATIVE) Ur Oxycodone Screen (NEGATIVE) Urine Methadone Screen (NEGATIVE) Ur Propoxyphene Screen (NEGATIVE) Ur Barbiturates Screen (NEGATIVE) Ur Tricyclics Screen (NEGATIVE) Ur Phencyclidine Scrn (NEGATIVE) Ur Amphetamine Screen (NEGATIVE) U Methamphetamines Scrn (NEGATIVE) U Benzodiazepines Scrn (NEGATIVE) U Cocaine Metab Screen (NEGATIVE) U Marijuana (THC) Screen (NEGATIVE) Ethyl Alcohol 0.00 (0.00) gm% 01/29/18 01/29/18 Range/Units 18:00 18:00 WBC (4.23-9.07) K/mm3 RBC (4.63-6.08) M/mm3 Hgb (13.7-17.5) gm/L Hct (40.1-51.0) % MCV (79.0-92.2) fl MCH (25.7-32.2) pg MCHC (32.2-35.5) g/dl RDW Std Deviation (35.1-43.9) fL Plt Count (163-337) K/mm3 MPV (9.4-12.3) fl Neut % (Auto) (34.0-67.9) % Lymph % (Auto) (21.8-53.1) % [place] % (Auto) (5.3-12.2) % Eos % (Auto) (0.8-7.0) Baso % (Auto) (0.1-1.2) % Neut # (Auto) (1.78-5.38) K/mm3 Lymph # (Auto) (1.32-3.57) K/mm3 [place] # (Auto) (0.30-0.82) K/mm3 Eos # (Auto) (0.04-0.54) K/mm3 Baso # (Auto) (0.01-0.08) K/mm3 Manual Slide Review D-Dimer, Quantitative (0.19-0.50) mg/L Sodium (136-145) mEq/L Potassium (3.5-5.1) mEq/L Chloride (98-107) mEq/L Carbon Dioxide (21-32) mEq/L Anion Gap (5-15) BUN (7-18) mg/dL Creatinine (0.7-1.3) mg/dL Est Cr Clr Drug Dosing mL/min Estimated GFR (MDRD) (>60) mL/min BUN/Creatinine Ratio (14-18) Glucose (74-106) mg/dL Calcium (8.5-10.1) mg/dL Magnesium (1.8-2.4) mg/dl Total Bilirubin (0.2-1.0) mg/dL AST (15-37) U/L ALT (16-63) U/L Alkaline Phosphatase (46-116) U/L Troponin I (0.00-0.056) ng/mL Total Protein (6.4-8.2) g/dl Albumin (3.4-5.0) g/dl Globulin gm/dL Albumin/Globulin Ratio (1-2) Free T4 (0.76-1.46) ng/dL TSH 3rd Generation (0.358-3.74) uIU/mL Urine Color Light yellow Urine Appearance Slt cloudy H Urine pH 7.0 Ur Specific [place] 1.025 Urine Protein Negative Urine Glucose (UA) Negative Urine Ketones 2+ H Urine Occult Blood Negative Urine Nitrite Negative Urine Bilirubin Negative Urine Urobilinogen 0.2 Ur Leukocyte Esterase Negative Urine RBC 0-5 Urine WBC 0-5 Urine WBC Clumps Ur Epithelial Cells 0-5 Ur Squamous Epith Cells Ur Transition Epith Cell Ur Renal Epithelial Cell Misenheimer Biurate Crystals Calcium Carbonate Cryst Calcium Phosphate Cryst Calcium Oxalate Crystal Leucine Crystals Cystine Crystals Uric Acid Crystals Triple Phos Crystals Sodium Urate Crystals Tyrosine Crystals Other Crystals Amorphous Sediment Many H Urine Bacteria Few Epithelial Casts Fatty Casts Hyaline Casts Fine Granular Casts Coarse Granular Casts Waxy Casts Broad Casts RBC Casts WBC Casts Urine Mucus Not seen Urine Other Urine Trichomonas Urine Yeast Ur Yeast w Hyphae Urine Yeast (Budding) Ur Oval Fat Bodies Urinalysis Comment Urine Opiates Screen Negative (NEGATIVE) Ur Buprenorphine Scrn Negative (NEGATIVE) Ur Oxycodone Screen Negative (NEGATIVE) Urine Methadone Screen Negative (NEGATIVE) Ur Propoxyphene Screen Negative (NEGATIVE) Ur Barbiturates Screen Negative (NEGATIVE) Ur Tricyclics Screen Negative (NEGATIVE) Ur Phencyclidine Scrn Negative (NEGATIVE) Ur Amphetamine Screen Negative (NEGATIVE) U Methamphetamines Scrn Negative (NEGATIVE) U Benzodiazepines Scrn Negative (NEGATIVE) U Cocaine Metab Screen Negative (NEGATIVE) U Marijuana (THC) Screen Negative (NEGATIVE) Ethyl Alcohol (0.00) gm% Med Orders - Current: Current Medications Acetaminophen (Tylenol) 650 mg PO Q4H PRN PRN Reason: Pain (Mild 1-3)/fever Hydrocodone Bitart/Acetaminophen (Agenda 325-5 Mg) 1 tab PO Q4H PRN PRN Reason: Pain (moderate 4-6) Bisacodyl (Dulcolax) 5 mg PO DAILY PRN PRN Reason: Constipation Docusate Sodium (Colace) 100 mg PO BID PRN PRN Reason: Constipation Enoxaparin Sodium (Lovenox) 40 mg SUBCUT DAILY DIDI Famotidine (Pepcid) 20 mg PO BID DIDI Hydralazine HCl (Apresoline) 20 mg IVPUSH Q4H PRN PRN Reason: Hypertension Amiodarone HCl/Dextrose 150 mg (/ Premix) 100 mls @ 600 mls/hr IV ONETIME PRN; Protocol PRN Reason: V-TACH Last Admin: 01/30/18 02:50 Dose: 600 mls/hr Amiodarone HCl/Dextrose (Nexterone In Dextrose 360 Mg/200 Ml) 360 mg in 200 mls @ 16.7 mls/hr IV ASDIRECTED DIDI; Protocol Lorazepam (Ativan) 2 mg IVPUSH Q4H PRN PRN Reason: Seizures Magnesium Hydroxide (Milk Of Magnesia) 30 ml PO Q12H PRN PRN Reason: Constipation Magnesium Sulfate (Pharmacy To Dose - Magnesium Replacement) 0 dose .XX ASDIRECTED PRN PRN Reason: RX TO WATCH MAG LEVELS Metoprolol Tartrate (Lopressor) 5 mg IVPUSH Q4H PRN PRN Reason: Tachycardia Morphine Sulfate (Morphine) 2 mg IVPUSH Q2H PRN PRN Reason: Pain (severe 7-10) Stop: 01/30/18 19:06 Ondansetron HCl (Zofran Odt) 4 mg PO Q4H PRN PRN Reason: nausea, able to take PO Ondansetron HCl (Zofran) 4 mg IV Q4H PRN PRN Reason: Nausea/Vomiting Polyethylene Glycol (Miralax) 17 gm PO DAILY PRN PRN Reason: Constipation Potassium Chloride (Pharmacy To Dose - Potassium Replacement) 0 dose .XX ASDIRECTED PRN PRN Reason: RX TO WATCH K LEVELS Senna/Docusate Sodium (Senna Plus) 1 tab PO BID PRN PRN Reason: Constipation Sodium Chloride (Saline Flush) 10 ml FLUSH ASDIRECTED PRN PRN Reason: Keep Vein Open Last Admin: 01/29/18 14:38 Dose: 10 ml Discontinued Medications Sodium Chloride (Normal Saline) 1,000 mls @ 999 mls/hr IV ONETIME ONE Stop: 01/29/18 14:56 Last Admin: 01/29/18 14:38 Dose: 999 mls/hr Amiodarone HCl/Dextrose (Nexterone In Dextrose 360 Mg/200 Ml) 360 mg in 200 mls @ 33.333 mls/hr IV ASDIRECTED DIDI; Protocol Last Admin: 01/29/18 20:39 Dose: 33.333 mls/hr - Exam Quality Assessment: DVT Prophylaxis General: Alert, Oriented, Cooperative, No Acute Distress HEENT: Pupils Equal, Pupils Reactive, EOMI, Mucous Membr. Moist/[place] Neck: Supple, Trachea Midline, No JVD Lungs: Clear to Auscultation, Normal Respiratory Effort Cardiovascular: Regular Rate, Regular Rhythm GI/Abdominal Exam: Normal Bowel Sounds, Soft, Non-Tender, No Distention (Male) Exam: Deferred Back Exam: Normal Inspection, Full Range of Motion Extremities: Normal Inspection, Normal Range of Motion, Non-Tender, No Pedal Edema, Normal Capillary Refill Peripheral Pulses: 3+: Radial (L), Radial (R), Posterior Tibial (L), Posterior Tibial (R), Dorsalis Pedis (L), Dorsalis Pedis (R) Skin: Warm, Dry, Intact Neurological: No New Focal Deficit Psy/Mental Status: Alert, Normal Affect, Normal Mood - Problem List & Annotations (1) Palpitations SNOMED Code(s): 05597843 Code(s): R00.2 - PALPITATIONS Status: Acute Priority: Medium Current Visit: Yes (2) V-tach SNOMED Code(s): 58195643, 22465029 Code(s): I47.2 - VENTRICULAR TACHYCARDIA Status: Acute Priority: High Current Visit: Yes (3) Anxiety SNOMED Code(s): 12785961 Code(s): F41.9 - ANXIETY DISORDER, UNSPECIFIED Status: Chronic Priority: Low Current Visit: Yes - Problem List Review Problem List Initiated/Reviewed/Updated: Yes - Plan Plan:: I/P: Acute: VTach * Palpitations have been occurring more frequently x2 weeks, especially the past 2-3 days * No family cardiac history or sudden , no illicit drug use, no caffeine intake, no medications, no PMH * States he doesn't know what causes it, but sometimes brought on by physical activity and eating "too much" * Has had these episodes intermittently x5 years, was told it was anxiety * EKG in ED normal * Telemetry in ED caught 6 different episodes of VTach, ranging from 10 seconds to 40 seconds in length * [employer] Dr. Arizmendi at [facility] consulted by ED: * Admit bc risk for sudden cardiac * Recommends ECHO in AM - ordered * May need EP, will need to see results of ECHO first * May need to be transferred to Dr. Arizmendi pending ECHO results * Amiodarone started last night - continue drip per protocol then transition to PO * Monitor on Telemetry in ICU * Cardiology follow-up after discharge Chronic: Anxiety * Reports palpitatoins with anxiety when attacks occur * PRN ativan if needed * Sae consult Plan: Transferred to ICU He remains stable Other orders as indicated above ECHO obtained and pending. Regular Diet DVT Prophylaxis: Lovenox GI Prophylaxis: Pepcid Code Status: Full code; PCP: None <Karlene Mckay - Last Filed: 01/30/18 18:16> - Patient Data Vitals - Most Recent: Last Vital Signs Temp 37.2 C 01/30/18 15:00 Pulse 70 01/30/18 15:00 Resp 20 01/30/18 15:00 BP 104/61 01/30/18 15:00 Pulse Ox 97 01/30/18 15:00 I&O - Last 24 Hours: Intake & Output 01/30/18 01/30/18 01/30/18 06:59 14:59 22:59 Intake Total 531 493 Output Total 400 400 400 Balance 131 93 -400 Lab Results Last 24 Hours: Laboratory Results - last 24 hr 01/29/18 01/29/18 01/29/18 Range/Units 14:30 15:36 18:00 WBC (4.23-9.07) K/mm3 RBC (4.63-6.08) M/mm3 Hgb (13.7-17.5) gm/L Hct (40.1-51.0) % MCV (79.0-92.2) fl MCH (25.7-32.2) pg MCHC (32.2-35.5) g/dl RDW Std Deviation (35.1-43.9) fL Plt Count (163-337) K/mm3 MPV (9.4-12.3) fl Neut % (Auto) (34.0-67.9) % Lymph % (Auto) (21.8-53.1) % [place] % (Auto) (5.3-12.2) % Eos % (Auto) (0.8-7.0) Baso % (Auto) (0.1-1.2) % Neut # (Auto) (1.78-5.38) K/mm3 Lymph # (Auto) (1.32-3.57) K/mm3 [place] # (Auto) (0.30-0.82) K/mm3 Eos # (Auto) (0.04-0.54) K/mm3 Baso # (Auto) (0.01-0.08) K/mm3 Manual Slide Review Sodium (136-145) mEq/L Potassium (3.5-5.1) mEq/L Chloride (98-107) mEq/L Carbon Dioxide (21-32) mEq/L Anion Gap (5-15) BUN (7-18) mg/dL Creatinine (0.7-1.3) mg/dL Est Cr Clr Drug Dosing mL/min Estimated GFR (MDRD) (>60) mL/min BUN/Creatinine Ratio (14-18) Glucose (74-106) mg/dL Calcium (8.5-10.1) mg/dL Magnesium (1.8-2.4) mg/dl Free T4 1.19 (0.76-1.46) ng/dL Urine Color Cancelled Urine Appearance Cancelled Urine pH Cancelled Ur Specific [place] Cancelled Urine Protein Cancelled Urine Glucose (UA) Cancelled Urine Ketones Cancelled Urine Occult Blood Cancelled Urine Nitrite Cancelled Urine Bilirubin Cancelled Urine Urobilinogen Cancelled Ur Leukocyte Esterase Cancelled Urine RBC Cancelled Urine WBC Cancelled Urine WBC Clumps Cancelled Ur Epithelial Cells Cancelled Ur Squamous Epith Cells Cancelled Ur Transition Epith Cell Cancelled Ur Renal Epithelial Cell Cancelled [place] Biurate Crystals Cancelled Calcium Carbonate Cryst Cancelled Calcium Phosphate Cryst Cancelled Calcium Oxalate Crystal Cancelled Leucine Crystals Cancelled Cystine Crystals Cancelled Uric Acid Crystals Cancelled Triple Phos Crystals Cancelled Sodium Urate Crystals Cancelled Tyrosine Crystals Cancelled Other Crystals Cancelled Amorphous Sediment Cancelled Urine Bacteria Cancelled Epithelial Casts Cancelled Fatty Casts Cancelled Hyaline Casts Cancelled Fine Granular Casts Cancelled Coarse Granular Casts Cancelled Waxy Casts Cancelled Broad Casts Cancelled RBC Casts Cancelled WBC Casts Cancelled Urine Mucus Cancelled Urine Other Cancelled Urine Trichomonas Cancelled Urine Yeast Cancelled Ur Yeast w Hyphae Cancelled Urine Yeast (Budding) Cancelled Ur Oval Fat Bodies Cancelled Urinalysis Comment Cancelled Urine Opiates Screen Negative (NEGATIVE) Ur Buprenorphine Scrn Negative (NEGATIVE) Ur Oxycodone Screen Negative (NEGATIVE) Urine Methadone Screen Negative (NEGATIVE) Ur Propoxyphene Screen Negative (NEGATIVE) Ur Barbiturates Screen Negative (NEGATIVE) Ur Tricyclics Screen Negative (NEGATIVE) Ur Phencyclidine Scrn Negative (NEGATIVE) Ur Amphetamine Screen Negative (NEGATIVE) U Methamphetamines Scrn Negative (NEGATIVE) U Benzodiazepines Scrn Negative (NEGATIVE) U Cocaine Metab Screen Negative (NEGATIVE) U Marijuana (THC) Screen Negative (NEGATIVE) 01/29/18 01/30/18 01/30/18 Range/Units 18:00 11:10 11:10 WBC 7.77 (4.23-9.07) K/mm3 RBC 6.80 H (4.63-6.08) M/mm3 Hgb 13.9 (13.7-17.5) gm/L Hct 43.2 (40.1-51.0) % MCV 63.5 L (79.0-92.2) fl MCH 20.4 L (25.7-32.2) pg MCHC 32.2 (32.2-35.5) g/dl RDW Std Deviation 40.9 (35.1-43.9) fL Plt Count 271 (163-337) K/mm3 MPV 10.6 (9.4-12.3) fl Neut % (Auto) 73.1 H (34.0-67.9) % Lymph % (Auto) 12.9 L (21.8-53.1) % [place] % (Auto) 11.6 (5.3-12.2) % Eos % (Auto) 1.7 (0.8-7.0) Baso % (Auto) 0.6 (0.1-1.2) % Neut # (Auto) 5.68 H (1.78-5.38) K/mm3 Lymph # (Auto) 1.00 L (1.32-3.57) K/mm3 [place] # (Auto) 0.90 H (0.30-0.82) K/mm3 Eos # (Auto) 0.13 (0.04-0.54) K/mm3 Baso # (Auto) 0.05 (0.01-0.08) K/mm3 Manual Slide Review Abnormal smear Sodium 138 (136-145) mEq/L Potassium 3.4 L (3.5-5.1) mEq/L Chloride 105 (98-107) mEq/L Carbon Dioxide 26 (21-32) mEq/L Anion Gap 10.4 (5-15) BUN 11 (7-18) mg/dL Creatinine 1.0 (0.7-1.3) mg/dL Est Cr Clr Drug Dosing 94.56 mL/min Estimated GFR (MDRD) > 60 (>60) mL/min BUN/Creatinine Ratio 11.0 L (14-18) Glucose 102 (74-106) mg/dL Calcium 8.7 (8.5-10.1) mg/dL Magnesium 1.9 (1.8-2.4) mg/dl Free T4 (0.76-1.46) ng/dL Urine Color Light yellow Urine Appearance Slt cloudy H Urine pH 7.0 Ur Specific [place] 1.025 Urine Protein Negative Urine Glucose (UA) Negative Urine Ketones 2+ H Urine Occult Blood Negative Urine Nitrite Negative Urine Bilirubin Negative Urine Urobilinogen 0.2 Ur Leukocyte Esterase Negative Urine RBC 0-5 Urine WBC 0-5 Urine WBC Clumps Ur Epithelial Cells 0-5 Ur Squamous Epith Cells Ur Transition Epith Cell Ur Renal Epithelial Cell [place]isenheimer Biurate Crystals Calcium Carbonate Cryst Calcium Phosphate Cryst Calcium Oxalate Crystal Leucine Crystals Cystine Crystals Uric Acid Crystals Triple Phos Crystals Sodium Urate Crystals Tyrosine Crystals Other Crystals Amorphous Sediment Many H Urine Bacteria Few Epithelial Casts Fatty Casts Hyaline Casts Fine Granular Casts Coarse Granular Casts Waxy Casts Broad Casts RBC Casts WBC Casts Urine Mucus Not seen Urine Other Urine Trichomonas Urine Yeast Ur Yeast w Hyphae Urine Yeast (Budding) Ur Oval Fat Bodies Urinalysis Comment Urine Opiates Screen (NEGATIVE) Ur Buprenorphine Scrn (NEGATIVE) Ur Oxycodone Screen (NEGATIVE) Urine Methadone Screen (NEGATIVE) Ur Propoxyphene Screen (NEGATIVE) Ur Barbiturates Screen (NEGATIVE) Ur Tricyclics Screen (NEGATIVE) Ur Phencyclidine Scrn (NEGATIVE) Ur Amphetamine Screen (NEGATIVE) U Methamphetamines Scrn (NEGATIVE) U Benzodiazepines Scrn (NEGATIVE) U Cocaine Metab Screen (NEGATIVE) U Marijuana (THC) Screen (NEGATIVE) Med Orders - Current: Current Medications Acetaminophen (Tylenol) 650 mg PO Q4H PRN PRN Reason: Pain (Mild 1-3)/fever Hydrocodone Bitart/Acetaminophen (Agenda 325-5 Mg) 1 tab PO Q4H PRN PRN Reason: Pain (moderate 4-6) Bisacodyl (Dulcolax) 5 mg PO DAILY PRN PRN Reason: Constipation Docusate Sodium (Colace) 100 mg PO BID PRN PRN Reason: Constipation Enoxaparin Sodium (Lovenox) 40 mg SUBCUT DAILY [facility] Last Admin: 01/30/18 09:26 Dose: 40 mg Famotidine (Pepcid) 20 mg PO BID DIDI Last Admin: 01/30/18 09:24 Dose: 20 mg Hydralazine HCl (Apresoline) 20 mg IVPUSH Q4H PRN PRN Reason: Hypertension Amiodarone HCl/Dextrose 150 mg (/ Premix) 100 mls @ 600 mls/hr IV ONETIME PRN; Protocol PRN Reason: V-TACH Last Admin: 01/30/18 02:50 Dose: 600 mls/hr Amiodarone HCl/Dextrose (Nexterone In Dextrose 360 Mg/200 Ml) 360 mg in 200 mls @ 16.7 mls/hr IV ASDIRECTED [facility]; Protocol Last Admin: 01/30/18 13:23 Dose: 16.7 mls/hr Lorazepam (Ativan) 2 mg IVPUSH Q4H PRN PRN Reason: Seizures Lorazepam (Ativan) 0.25 mg IVPUSH Q4H PRN PRN Reason: Anxiety Magnesium Hydroxide (Milk Of Magnesia) 30 ml PO Q12H PRN PRN Reason: Constipation Magnesium Sulfate (Pharmacy To Dose - Magnesium Replacement) 0 dose .XX ASDIRECTED PRN PRN Reason: RX TO WATCH MAG LEVELS Metoprolol Tartrate (Lopressor) 5 mg IVPUSH Q4H PRN PRN Reason: Tachycardia Morphine Sulfate (Morphine) 2 mg IVPUSH Q2H PRN PRN Reason: Pain (severe 7-10) Stop: 01/30/18 19:06 Ondansetron HCl (Zofran Odt) 4 mg PO Q4H PRN PRN Reason: nausea, able to take PO Ondansetron HCl (Zofran) 4 mg IV Q4H PRN PRN Reason: Nausea/Vomiting Polyethylene Glycol (Miralax) 17 gm PO DAILY PRN PRN Reason: Constipation Potassium Chloride (Pharmacy To Dose - Potassium Replacement) 0 dose .XX ASDIRECTED PRN PRN Reason: RX TO WATCH K LEVELS Senna/Docusate Sodium (Senna Plus) 1 tab PO BID PRN PRN Reason: Constipation Sodium Chloride (Saline Flush) 10 ml FLUSH ASDIRECTED PRN PRN Reason: Keep Vein Open Last Admin: 01/29/18 14:38 Dose: 10 ml Discontinued Medications Sodium Chloride (Normal Saline) 1,000 mls @ 999 mls/hr IV ONETIME ONE Stop: 01/29/18 14:56 Last Admin: 01/29/18 14:38 Dose: 999 mls/hr Amiodarone HCl/Dextrose (Nexterone In Dextrose 360 Mg/200 Ml) 360 mg in 200 mls @ 33.333 mls/hr IV ASDIRECTED [facility]; Protocol Last Admin: 01/29/18 20:39 Dose: 33.333 mls/hr - My Orders Last 24 Hours: My Active Orders 01/29/18 19:31 Amiodarone In Dextrose,Iso-Osm [Nexterone in Dextrose 150 MG/100 ML] 150 mg Premix Bag 1 bag IV ONETIME 01/29/18 20:34 LORazepam [Ativan] 2 mg IVPUSH Q4H PRN Metoprolol Tartrate [Lopressor] 5 mg IVPUSH Q4H PRN hydrALAZINE [Apresoline] 20 mg IVPUSH Q4H PRN 01/29/18 20:45 Magnesium Rep Pharmacy to Dose [Pharmacy to Dose - Magnesium Replacement] 0 dose .XX ASDIRECTED PRN Potassium Rep Pharmacy to Dose [Pharmacy to Dose - Potassium Replacement] 0 dose .XX ASDIRECTED PRN 01/30/18 02:45 Amiodarone In Dextrose,Iso-Osm [Nexterone in Dextrose 360 MG/200 ML] 360 mg in 200 ml IV ASDIRECTED 01/30/18 15:06 EKG Documentation Completion [RC] ASDIRECTED EKG 12 Lead [EK] Routine 01/30/18 Breakfast Regular Diet [DIET] - Plan Plan:: His rhythm responded well to Amiodarone drip. Overnight no significant episode of v-tach but rather PVC's and Trigeminy's. He feels pretty good and reports no acute issues. His 2D echo report essentially was benign read by Dr. Arizmendi from [facility]. Called [facility] and spoke to VICKIE Narvaez. After discussing case with him he reviewed the EKGs I faxed to him. He felt with normal structural heart (2D Echo ) and an EKG with Sinus Rhythm at rest, he believed patient is low risk for sudden cardiac . However he recommended CCB (Cardizem CD 120 mg po daily) for maintenance and follow up with cardiology outpatient. Relayed above discussion to patient and once he comes off drip, he will be switched to CCB.
[2018-01-30] MEDS: Famotidine 20 MG Tab PO SCH ×2 (09:24→20:39)
[2018-01-30] MEDS: Enoxaparin 40 MG/0.4 ML Syringe SUBCUT SCH (09:26)
[2018-01-30] MEDS ORDERED: LORazepam 2 MG/ML SDV IVPUSH PRN (09:47)
[2018-01-30] MEDS ORDERED: Diltiazem 120 MG Cap.CD PO ONE (18:17)
[2018-01-31] MEDS ORDERED: Diltiazem 120 MG Cap.CD PO SCH (09:00)
--- NOTE | 2018-01-31 09:30 | PCM.DCSUM1 ---
Discharge Summary - Hospital Course Brief History: HPI: This is a 22 yo male originally from [facility] with past medical hx/o Anxiety and heart palpitations who comes in for V-Tach. He complains of intermittent palpitations. He denies shortness of breath, syncope, chest pain, N/V/D, headache, or GI/ complaints. His initial workup in the ED showed a CBC remarkable for RBC 6.85, MCV 64.2, MCH 20.7, Lymph 16.3%, Mills 17.6 %, Lymph 1.19, Mills 1.29. His chemistry is unremarkable. EKG in ED was unremarkable, however according to the ED provider he did go into 6 different bouts of VTach while on telemetry lasting from [address] Arizmendi in [place] was consulted by ED and he recommended admission due to risk of sudden cardiac . Also recommends ECHO be done. He is subsequently admitted to the ICU. He is a full code. He currently does not have a PCP. Diagnosis: Stroke: No - Discharge Data Discharge Date: 01/31/18 Discharge Disposition: Home, Self-Care 01 Condition: Good - Discharge Diagnosis/Problem(s) (1) V-tach SNOMED Code(s): 33310102, 93351268 ICD Code: I47.2 - VENTRICULAR TACHYCARDIA Status: Acute Priority: High Problem Details: - Intermittent (2) Palpitations SNOMED Code(s): 52183286 ICD Code: R00.2 - PALPITATIONS Status: Resolved Priority: Medium (3) Anxiety SNOMED Code(s): 01105977 ICD Code: F41.9 - ANXIETY DISORDER, UNSPECIFIED Status: Chronic Priority : Low Problem Details: - Refused Tele-psych - Patient Summary/Data Operative Procedure(s) Performed: None Complications: None Consults: Consultations 01/30/18 09:49 Consult to Physician [CONS] Routine Labs Pending at D/C: None Recommended Follow-up Testing/Procedures: None Planned Operative Procedure(s) after DC: None Hospital Course: Patient was primarily admitted for medical evaluation and management of intermittent NSVT. According to him, he has had chronic on and off heart palpitations pretty much in his young adult life. He had his first episode back when he was 17 years old wherein he was seen and evaluated in a local ED back in his country, in [facility]. He states all work up was negative. However has not been formally evaluated by a executive relations specialist since then. Patient is here in [place] and temporarily works in [employer] While at work, he experienced sudden heart palpitations. Although he denies any hx/o panic attack , his symptom immediate followed by acute anxiety. Upon presentation to ED, he was found in NSVT on and off and a documented event as long as 40 seconds. All basic cardiac work up was essentially benign. His UDS was negative, thyroid panel was normal and 2D echo showed normal heart structure. While in ED, he received initial treatment before he was sent to the unit for further management. In the unit, he was put on amiodarone drip to improve his abnormal rhythm and he slowly improved on this regimen. Once stabilized, we made a tele-consult with Dr. Sanchez, copy center specialist in [place]. After he reviewed patient's, EKGs and 2D echo, he felt patient was low risk for sudden cardiac but recommended Cardizem CD 120 mg po daily for maintenance medication and cardiology follow up after discharge. His hospital course was uncomplicated and he was stable upon discharge. His last documented vitals with activity were BP of 112/65 mmHg with heart rates in the 82-85 beats per minute. Patient was advised to follow up with cardiology since we were not able to set him up an appointment while he was here in the hospital. He was further advised to come back or seek immediate care should his symptoms persists or gets worse. The patient expressed understanding and in agreement with the plans as discussed above. All questions were answered. - Patient Instructions Diet: Usual Diet as Tolerated Activity: As Tolerated Driving: Do Not Drive Showering/Bathing: May Shower Notify Provider of: Fever, Increased Pain, Swelling and Redness, Nausea and/or Vomiting Other/Special Instructions: - Please take all new medications as directed. - Resume all routine home activities as tolerated. - Hold Cardizem if HR is < 60 bpm. - Take Ativan as needed to quickly resolve acute anxiety. - Recommend you keep cardiology appointment after discharge if none scheduled for you, make sure you set up yourself. - Call or follow up with your PCP for any questions or concerns after discharge. - Follow up with your PCP in 1-2 weeks. - Come back or seek immediate care should your symptoms persist or get worse - Discharge Plan *PRESCRIPTION DRUG MONITORING PROGRAM REVIEWED*: No *COPY OF PRESCRIPTION DRUG MONITORING REPORT IN PATIENT CAROL: No Prescriptions/Med Rec: LORazepam [Ativan] 0.5 mg PO Q4HR PRN #20 tablet PRN Reason: Anxiety Diltiazem [Cardizem CD] 120 mg PO DAILY #30 cap.cd Home Medications: Home Meds Diltiazem [Cardizem CD] 120 mg PO DAILY #30 cap.cd 01/31/18 [Rx] LORazepam [Ativan] 0.5 mg PO Q4HR PRN #20 tablet 01/31/18 [Rx] Patient Handouts: Generalized Anxiety Disorder, Adult, Palpitations, Easy-to- Read, Ventricular Tachycardia Referrals: PCP,None [Primary Care Provider] - - Discharge Summary/Plan Comment DC Time >30 min.: Yes (45 mins) Discharge Summary/Plan Comment: Discharge to Home - General Info Date of Service: 01/31/18 Admission Dx/Problem (Free Text: Admission Diagnosis/Problem Admission Diagnosis/Problem Ventricular tachycardia seen on building performance consultant Subjective Update: In to see [facility]. He is lying in bed. He has no complaints. He has been on amiodarone for awhile now and has not had any arrhythmias. Will continue drip and eventually transition to PO per protocol. No nursing concerns. Echo was obtained today and results are pending. Functional Status: Reports: Pain Controlled, Tolerating Diet, Ambulating, Urinating. Denies: New Symptoms - Review of Systems General: Denies: Fever, Weakness, Fatigue, Malaise, Chills HEENT: Reports: No Symptoms Pulmonary: Denies: Shortness of Breath, Pleuritic Chest Pain, Cough Cardiovascular: Denies: Chest Pain, Palpitations, Dyspnea on Exertion, Lightheadedness Gastrointestinal: Denies: Abdominal Pain, Nausea, Vomiting Genitourinary: Reports: No Symptoms Musculoskeletal: Reports: No Symptoms Skin: Reports: No Symptoms Neurological: Denies: Confusion, Dizziness, Headache, Gait Disturbance Psychiatric: Denies: Depression, Anxiety, Agitation, Hallucinations Systems Review Comment: No significant overnight or acute issues. However he had a onetime NSVT last night. His HR is currently in the mid-upper 50s and blood pressure is relatively in the hypotensive range at rest. He walked down the kiran and his vitals improved. - Patient Data Vitals - Most Recent: Last Vital Signs Temp 37.2 C 01/31/18 04:00 Pulse 68 07/14/18 08:00 Resp 12 01/31/18 04:00 BP 166/66 H 01/31/18 08:00 Pulse Ox 98 01/31/18 08:00 Weight - Most Recent: 57.289 kg I&O - Last 24 hours: Intake & Output 01/30/18 01/31/18 01/31/18 22:59 06:59 14:59 Intake Total 32 Output Total 400 Balance -400 32 Lab Results - Last 24 hrs: Laboratory Results - last 24 hr 01/30/18 01/30/18 01/31/18 Range/Units 11:10 11:10 05:40 WBC 7.77 5.44 (4.23-9.07) K/mm3 RBC 6.80 H 6.78 H (4.63-6.08) M/mm3 Hgb 13.9 14.0 (13.7-17.5) gm/L Hct 43.2 43.3 (40.1-51.0) % MCV 63.5 L 63.9 L (79.0-92.2) fl MCH 20.4 L 20.6 L (25.7-32.2) pg MCHC 32.2 32.3 (32.2-35.5) g/dl RDW Std Deviation 40.9 40.9 (35.1-43.9) fL Plt Count 271 281 (163-337) K/mm3 MPV 10.6 10.8 (9.4-12.3) fl Neut % (Auto) 73.1 H 42.3 (34.0-67.9) % Lymph % (Auto) 12.9 L 34.9 (21.8-53.1) % Mills % (Auto) 11.6 15.6 H (5.3-12.2) % Eos % (Auto) 1.7 5.9 (0.8-7.0) Baso % (Auto) 0.6 1.1 (0.1-1.2) % Neut # (Auto) 5.68 H 2.30 (1.78-5.38) K/mm3 Lymph # (Auto) 1.00 L 1.90 (1.32-3.57) K/mm3 Mills # (Auto) 0.90 H 0.85 H (0.30-0.82) K/mm3 Eos # (Auto) 0.13 0.32 (0.04-0.54) K/mm3 Baso # (Auto) 0.05 0.06 (0.01-0.08) K/mm3 Manual Slide Review Abnormal smear Abnormal smear Sodium 138 (136-145) mEq/L Potassium 3.4 L (3.5-5.1) mEq/L Chloride 105 (98-107) mEq/L Carbon Dioxide 26 (21-32) mEq/L Anion Gap 10.4 (5-15) BUN 11 (7-18) mg/dL Creatinine 1.0 (0.7-1.3) mg/dL Est Cr Clr Drug Dosing 94.56 mL/min Estimated GFR (MDRD) > 60 (>60) mL/min BUN/Creatinine Ratio 11.0 L (14-18) Glucose 102 (74-106) mg/dL Calcium 8.7 (8.5-10.1) mg/dL Magnesium 1.9 (1.8-2.4) mg/dl 01/31/18 Range/Units 05:40 WBC (4.23-9.07) K/mm3 RBC (4.63-6.08) M/mm3 Hgb (13.7-17.5) gm/L Hct (40.1-51.0) % MCV (79.0-92.2) fl MCH (25.7-32.2) pg MCHC (32.2-35.5) g/dl RDW Std Deviation (35.1-43.9) fL Plt Count (163-337) K/mm3 MPV (9.4-12.3) fl Neut % (Auto) (34.0-67.9) % Lymph % (Auto) (21.8-53.1) % Mills % (Auto) (5.3-12.2) % Eos % (Auto) (0.8-7.0) Baso % (Auto) (0.1-1.2) % Neut # (Auto) (1.78-5.38) K/mm3 Lymph # (Auto) (1.32-3.57) K/mm3 Mills # (Auto) (0.30-0.82) K/mm3 Eos # (Auto) (0.04-0.54) K/mm3 Baso # (Auto) (0.01-0.08) K/mm3 Manual Slide Review Sodium 141 (136-145) mEq/L Potassium 3.7 (3.5-5.1) mEq/L Chloride 104 (98-107) mEq/L Carbon Dioxide 30 (21-32) mEq/L Anion Gap 10.7 (5-15) BUN 11 (7-18) mg/dL Creatinine 1.0 (0.7-1.3) mg/dL Est Cr Clr Drug Dosing 93.89 mL/min Estimated GFR (MDRD) > 60 (>60) mL/min BUN/Creatinine Ratio 11.0 L (14-18) Glucose 93 (74-106) mg/dL Calcium 9.3 (8.5-10.1) mg/dL Magnesium 2.2 (1.8-2.4) mg/dl Med Orders - Current: Current Medications Acetaminophen (Tylenol) 650 mg PO Q4H PRN PRN Reason: Pain (Mild 1-3)/fever Hydrocodone Bitart/Acetaminophen ([place] 325-5 Mg) 1 tab PO Q4H PRN PRN Reason: Pain (moderate 4-6) Bisacodyl (Dulcolax) 5 mg PO DAILY PRN PRN Reason: Constipation Diltiazem HCl (Cardizem Cd) 120 mg PO DAILY [facility] Docusate Sodium (Colace) 100 mg PO BID PRN PRN Reason: Constipation Enoxaparin Sodium (Lovenox) 40 mg SUBCUT DAILY [facility] Last Admin: 01/30/18 09:26 Dose: 40 mg Famotidine (Pepcid) 20 mg PO BID [facility] Last Admin: 01/30/18 20:39 Dose: 20 mg Hydralazine HCl (Apresoline) 20 mg IVPUSH Q4H PRN PRN Reason: Hypertension Amiodarone HCl/Dextrose 150 mg (/ Premix) 100 mls @ 600 mls/hr IV ONETIME PRN; Protocol PRN Reason: V-TACH Last Admin: 01/30/18 02:50 Dose: 600 mls/hr Amiodarone HCl/Dextrose (Nexterone In Dextrose 360 Mg/200 Ml) 360 mg in 200 mls @ 16.7 mls/hr IV ASDIRECTED [facility]; Protocol Last Infusion: 01/30/18 20:40 Dose: 0 mls/hr Lorazepam (Ativan) 2 mg IVPUSH Q4H PRN PRN Reason: Seizures Lorazepam (Ativan) 0.25 mg IVPUSH Q4H PRN PRN Reason: Anxiety Magnesium Hydroxide (Milk Of Magnesia) 30 ml PO Q12H PRN PRN Reason: Constipation Magnesium Sulfate (Pharmacy To Dose - Magnesium Replacement) 0 dose .XX ASDIRECTED PRN PRN Reason: RX TO WATCH MAG LEVELS Metoprolol Tartrate (Lopressor) 5 mg IVPUSH Q4H PRN PRN Reason: Tachycardia Ondansetron HCl (Zofran Odt) 4 mg PO Q4H PRN PRN Reason: nausea, able to take PO Ondansetron HCl (Zofran) 4 mg IV Q4H PRN PRN Reason: Nausea/Vomiting Polyethylene Glycol (Miralax) 17 gm PO DAILY PRN PRN Reason: Constipation Potassium Chloride (Pharmacy To Dose - Potassium Replacement) 0 dose .XX ASDIRECTED PRN PRN Reason: RX TO WATCH K LEVELS Senna/Docusate Sodium (Senna Plus) 1 tab PO BID PRN PRN Reason: Constipation Sodium Chloride (Saline Flush) 10 ml FLUSH ASDIRECTED PRN PRN Reason: Keep Vein Open Last Admin: 01/29/18 14:38 Dose: 10 ml Discontinued Medications Diltiazem HCl (Cardizem Cd) 120 mg PO ONETIME ONE Stop: 01/30/18 18:18 Last Admin: 01/30/18 20:40 Dose: 120 mg Sodium Chloride (Normal Saline) 1,000 mls @ 999 mls/hr IV ONETIME ONE Stop: 01/29/18 14:56 Last Admin: 01/29/18 14:38 Dose: 999 mls/hr Amiodarone HCl/Dextrose (Nexterone In Dextrose 360 Mg/200 Ml) 360 mg in 200 mls @ 33.333 mls/hr IV ASDIRECTED DIDI; Protocol Last Admin: 01/29/18 20:39 Dose: 33.333 mls/hr Morphine Sulfate (Morphine) 2 mg IVPUSH Q2H PRN PRN Reason: Pain (severe 7-10) Stop: 01/30/18 19:06 - Exam General: Reports: Alert, Oriented, Cooperative, No Acute Distress HEENT: Reports: Pupils Equal, Pupils Reactive, EOMI, Mucous Membr. Moist/[place] Neck: Reports: Supple, Trachea Midline, No JVD Lungs: Reports: Clear to Auscultation, Normal Respiratory Effort Cardiovascular: Reports: Regular Rate, Regular Rhythm GI/Abdominal Exam: Normal Bowel Sounds, Soft, Non-Tender, No Organomegaly, No Distention, No Abnormal Bruit, No Mass (Male) Exam: Deferred Rectal (Males) Exam: Deferred Back Exam: Reports: Normal Inspection, Full Range of Motion Extremities: Normal Inspection, Normal Range of Motion, Non-Tender, No Pedal Edema, Normal Capillary Refill Skin: Reports: Warm, Dry, Intact Neurological: Reports: No New Focal Deficit Psy/Mental Status: Reports: Alert, Normal Affect, Normal Mood
[2018-01-31] MEDS: Famotidine 20 MG Tab PO SCH (10:00)
[2018-01-31] MEDS: Enoxaparin 40 MG/0.4 ML Syringe SUBCUT SCH (10:00)
== END 2018-01-31 11:30 | disposition home or self-care (01) | DRG 310 ==
LOC: JD.ED 12:20 → JD.ICU 17:30
PROVIDERS: ADMIT Internal Medicine; ATTEND Internal Medicine
DX: I47.2 Ventricular tachycardia (principal); F41.9 Anxiety disorder, unspecified
CPT/HCPCS: 36415; 71045; 71045-26; 80048; 80053; 80306; 81001; 83735; 84439; 84443; 84484; 85025; 85379; 93005; 93306; 96360; 96361; 99285-25; A9270-GY; G0480; J0282; J1650; J7040; J7050